=== PATIENT | male | born 1960 | race Caucasian/White ===

== ENCOUNTER 2019-09-29 15:27 | Outpatient (CLI) | payer BC, SELFPAY ==
[2019-09-29 15:57] LABS: Hematocrit 41.2 % (42.0-52.0); Mean Corpuscular Hemoglobin 30.6 pg (26-34); Mean Corpuscular Volume 90.2 fl (80-100); Mean Platelet Volume 9.4 fl (7.4-10.4); Platelet Count Result 242 k/mm3 (150-375); Red Blood Count 4.57 M/mm3 (4.6-6.20); Red Cell Distribution Width 12.2 % (11.5-14.5)
[2019-09-29 16:11] LABS: Alanine Aminotransferase 30 U/L (4-50); Albumin Level 4.2 g/dL (3.5-5.1); Alkaline Phosphatase 41 U/L (38-126); Aspartate Amino Transferase 24 U/L (17-59); Bilirubin,Total 0.3 mg/dL (0.2-1.3); Blood Urea Nitrogen 23 mg/dL (9-20); Calcium 9.3 mg/dL (8.4-10.2); Carbon Dioxide 24 mmol/L (22-30); Chloride 103 mmol/L (98-107); Cholesterol 119 mg/dL (0-200); Estimated Glomerular Filt Rate > 60; Glucose 128 mg/dL (75-110); HDL Direct 42 mg/dL; Sodium 141 mmol/L (137-145); Triglycerides 284 mg/dL (<150)
[2019-09-29 16:23] LABS: LDL Cholesterol Direct 51 mg/dL
[2019-09-29 16:54] LABS: Hemoglobin A1C 6.8 % (<5.7)
[2019-09-29 17:19] LABS: Prostate Specific Antigen 1.2 ng/mL (< OR = 4.0)
== END 2019-09-29 15:28 | disposition home or self-care (01) ==
LOC: ANHLAB 15:28
PROVIDERS: PCP Internal Medicine; Visit Provider Physician Assistant
DX: Z00.00 Encounter for general adult medical examination without abnormal findings (principal); E11.9 Type 2 diabetes mellitus without complications; Z12.5 Encounter for screening for malignant neoplasm of prostate
CPT/HCPCS: 36415; 80053; 80061; 83036; 84153; 84443; 85027

== ENCOUNTER 2020-05-31 08:28 | Outpatient (CLI) | payer BC, SELFPAY ==
[2020-05-31 09:06] LABS: Alanine Aminotransferase 36 U/L (4-50); Albumin Level 4.2 g/dL (3.5-5.1); Alkaline Phosphatase 39 U/L (38-126); Anion Gap 8 mmol/L (8-16); Aspartate Amino Transferase 22 U/L (17-59); Bilirubin,Total 0.6 mg/dL (0.2-1.3); Blood Urea Nitrogen 20 mg/dL (9-20); Calcium 9.4 mg/dL (8.4-10.2); Carbon Dioxide 30 mmol/L (22-30); Chloride 101 mmol/L (98-107); Cholesterol 185 mg/dL (0-200); Estimated Glomerular Filt Rate > 60; Glucose 211 mg/dL (75-110); HDL Direct 37 mg/dL; Potassium 4.2 mmol/L (3.4-5.0); Sodium 139 mmol/L (137-145); Triglycerides 194 mg/dL (<150)
[2020-05-31 09:10] LABS: Hemoglobin A1C 7.5 % (<5.7)
[2020-05-31 09:17] LABS: LDL Cholesterol Direct 114 mg/dL
[2020-05-31 09:22] LABS: Creatinine Urine 241.6 mg/dL
[2020-05-31 09:26] LABS: MALB Creatinine Ratio 13.8 mg/g (0-30); Microalbumin Urine Random 33.3 mg/L (0-16.7)
== END 2020-05-31 08:29 | disposition home or self-care (01) ==
PROVIDERS: PCP Internal Medicine; Visit Provider Physician Assistant
DX: E11.9 Type 2 diabetes mellitus without complications (principal)
CPT/HCPCS: 36415; 80053; 80061; 82043; 83036

== ENCOUNTER 2020-12-15 08:57 | Outpatient (CLI) | payer BC, SELFPAY ==
[2020-12-15 09:35] LABS: Hematocrit 42.4 % (42.0-52.0); Hemoglobin 14.4 g/dL (14.0-18.0); Mean Corpuscular Hemoglobin 29.9 pg (26-34); Mean Platelet Volume 8.8 fl (7.4-10.4); Platelet Count Result 235 k/mm3 (150-375); Red Blood Count 4.82 M/mm3 (4.6-6.20); Red Cell Distribution Width 12.5 % (11.5-14.5); White Blood Count 5.1 K/mm3 (4.5-10.0)
[2020-12-15 09:46] LABS: Alanine Aminotransferase 25 U/L (4-50); Albumin Level 4.3 g/dL (3.5-5.1); Alkaline Phosphatase 39 U/L (38-126); Anion Gap 7 mmol/L (8-16); Aspartate Amino Transferase 21 U/L (17-59); Bilirubin,Total 0.3 mg/dL (0.2-1.3); Blood Urea Nitrogen 19 mg/dL (9-20); Calcium 9.3 mg/dL (8.4-10.2); Carbon Dioxide 28 mmol/L (22-30); Chloride 104 mmol/L (98-107); Cholesterol 191 mg/dL (0-200); Estimated Glomerular Filt Rate > 60; Glucose 151 mg/dL (75-110); HDL Direct 49 mg/dL; Potassium 4.1 mmol/L (3.4-5.0); Sodium 139 mmol/L (137-145); Triglycerides 117 mg/dL (<150)
[2020-12-15 09:50] LABS: Hemoglobin A1C 7.2 % (<5.7)
[2020-12-15 09:59] LABS: LDL Cholesterol Direct 115 mg/dL
[2020-12-15 10:11] LABS: Creatinine Urine 209.7 mg/dL
[2020-12-15 10:15] LABS: MALB Creatinine Ratio 11.2 mg/g (0-30); Microalbumin Urine Random 23.5 mg/L (0-16.7)
[2020-12-15 10:17] LABS: Prostate Specific Antigen 2.9 ng/mL (< OR = 4.0)
[2020-12-15 10:52] LABS: Folic Acid 15.7 ng/mL (2.76->20)
== END 2020-12-15 08:58 | disposition home or self-care (01) ==
LOC: ANHLAB 09:00
PROVIDERS: PCP Physician Assistant; Visit Provider Physician Assistant
DX: E11.9 Type 2 diabetes mellitus without complications (principal); Z00.00 Encounter for general adult medical examination without abnormal findings; Z12.5 Encounter for screening for malignant neoplasm of prostate
CPT/HCPCS: 36415; 80053; 80061; 82043; 82607; 82746; 83036; 84153; 84443; 85027; G0103

== ENCOUNTER 2021-07-11 08:14 | Outpatient (CLI) | payer BC, SELFPAY ==
[2021-07-11 08:52] LABS: Hemoglobin A1C 7.3 % (<5.7)
[2021-07-11 08:59] LABS: Alanine Aminotransferase 28 U/L (4-50); Albumin Level 4.5 g/dL (3.5-5.1); Alkaline Phosphatase 42 U/L (38-126); Anion Gap 6 mmol/L (8-16); Aspartate Amino Transferase 21 U/L (17-59); Bilirubin,Total 0.4 mg/dL (0.2-1.3); Blood Urea Nitrogen 20 mg/dL (9-20); Calcium 9.8 mg/dL (8.4-10.2); Carbon Dioxide 27 mmol/L (22-30); Chloride 102 mmol/L (98-107); Cholesterol 194 mg/dL (0-200); Estimated Glomerular Filt Rate > 60; Glucose 157 mg/dL (65-110); HDL Direct 47 mg/dL; Potassium 4.1 mmol/L (3.4-5.0); Sodium 135 mmol/L (137-145); Triglycerides 152 mg/dL (<150)
[2021-07-11 09:10] LABS: LDL Cholesterol Direct 112 mg/dL
== END 2021-07-11 08:15 | disposition home or self-care (01) ==
LOC: ANHLAB 08:15
PROVIDERS: PCP Physician Assistant; Visit Provider Physician Assistant
DX: E11.9 Type 2 diabetes mellitus without complications (principal)
CPT/HCPCS: 36415; 80053; 80061; 83036

== ENCOUNTER 2022-01-13 07:56 | Outpatient (CLI) | payer BC, SELFPAY ==
[2022-01-13 09:00] LABS: Alanine Aminotransferase 28 U/L (6-50); Albumin Level 4.1 g/dL (3.5-5.1); Alkaline Phosphatase 40 U/L (38-126); Anion Gap 6 mmol/L (8-16); Aspartate Amino Transferase 20 U/L (17-59); Bilirubin,Total 0.5 mg/dL (0.2-1.3); Blood Urea Nitrogen 25 mg/dL (9-20); Calcium 8.8 mg/dL (8.4-10.2); Carbon Dioxide 28 mmol/L (22-30); Chloride 105 mmol/L (98-107); Cholesterol 122 mg/dL (0-200); Estimated Glomerular Filt Rate > 60; Glucose 168 mg/dL (65-110); HDL Direct 43 mg/dL; Potassium 3.9 mmol/L (3.4-5.0); Sodium 139 mmol/L (137-145); Triglycerides 104 mg/dL (<150)
[2022-01-13 09:11] LABS: LDL Cholesterol Direct 59 mg/dL
[2022-01-13 09:17] LABS: Hemoglobin A1C 8.3 % (<5.7)
[2022-01-13 10:29] LABS: Creatinine Urine 207.1 mg/dL
[2022-01-13 10:37] LABS: MALB Creatinine Ratio 14.1 mg/g (0-30); Microalbumin Urine Random 29.2 mg/L (0-16.7)
== END 2022-01-13 07:57 | disposition home or self-care (01) ==
LOC: ANHLAB 07:58
PROVIDERS: PCP Physician Assistant; Visit Provider Physician Assistant
DX: E11.9 Type 2 diabetes mellitus without complications (principal)
CPT/HCPCS: 36415; 80053; 80061; 82043; 83036

== ENCOUNTER 2022-05-06 08:07 | Outpatient (CLI) | payer BC, SELFPAY ==
[2022-05-06 09:02] LABS: Alanine Aminotransferase 29 U/L (6-50); Albumin Level 4.1 g/dL (3.5-5.1); Alkaline Phosphatase 37 U/L (38-126); Anion Gap 10 mmol/L (8-16); Aspartate Amino Transferase 22 U/L (17-59); Bilirubin,Total 0.4 mg/dL (0.2-1.3); Blood Urea Nitrogen 21 mg/dL (9-20); Calcium 9.2 mg/dL (8.4-10.2); Carbon Dioxide 24 mmol/L (22-30); Chloride 104 mmol/L (98-107); Estimated Glomerular Filt Rate > 60; Glucose 180 mg/dL (65-110); Sodium 138 mmol/L (137-145)
[2022-05-06 09:29] LABS: Prostate Specific Antigen 2.6 ng/mL (< OR = 4.0)
[2022-05-06 10:05] LABS: Folic Acid 18.2 ng/mL (2.76->20)
[2022-05-06 10:23] LABS: Hemoglobin A1C 8.1 % (<5.7)
== END 2022-05-06 08:08 | disposition home or self-care (01) ==
LOC: ANHLAB 08:08
PROVIDERS: PCP Physician Assistant; Visit Provider Physician Assistant
DX: Z00.00 Encounter for general adult medical examination without abnormal findings (principal); E11.9 Type 2 diabetes mellitus without complications; Z12.5 Encounter for screening for malignant neoplasm of prostate
CPT/HCPCS: 36415; 80053; 82607; 82746; 83036; 84153; 84443; G0103

== ENCOUNTER 2022-10-20 08:18 | Outpatient (CLI) | payer BC, SELFPAY ==
[2022-10-20 09:33] LABS: Alanine Aminotransferase 30 U/L (6-50); Albumin Level 4.7 g/dL (3.5-5.1); Alkaline Phosphatase 38 U/L (38-126); Anion Gap 6 mmol/L (8-16); Aspartate Amino Transferase 28 U/L (17-59); Bilirubin,Total 0.7 mg/dL (0.2-1.3); Blood Urea Nitrogen 24 mg/dL (9-20); Carbon Dioxide 27 mmol/L (22-30); Chloride 106 mmol/L (98-107); Estimated Glomerular Filt Rate > 60; Glucose 160 mg/dL (65-110); Hemoglobin A1C 7.8 % (<5.7); Sodium 139 mmol/L (137-145)
== END 2022-10-20 08:19 | disposition home or self-care (01) ==
PROVIDERS: PCP Physician Assistant; Visit Provider Physician Assistant
DX: E11.9 Type 2 diabetes mellitus without complications (principal)
CPT/HCPCS: 36415; 80053; 83036

== ENCOUNTER 2023-03-17 08:16 | Outpatient (CLI) | payer BC, SELFPAY ==
[2023-03-17 08:44] LABS: Alanine Aminotransferase 28 U/L (6-50); Albumin Level 4.1 g/dL (3.5-5.1); Alkaline Phosphatase 35 U/L (38-126); Anion Gap 6 mmol/L (8-16); Aspartate Amino Transferase 25 U/L (17-59); Bilirubin,Total 0.6 mg/dL (0.2-1.3); Blood Urea Nitrogen 27 mg/dL (9-20); Calcium 8.9 mg/dL (8.4-10.2); Carbon Dioxide 25 mmol/L (22-30); Chloride 105 mmol/L (98-107); Estimated Glomerular Filt Rate > 60; Glucose 142 mg/dL (65-110); Potassium 4.1 mmol/L (3.4-5.0); Sodium 136 mmol/L (137-145)
[2023-03-17 09:14] LABS: Hemoglobin A1C 7.8 % (<5.7)
== END 2023-03-17 08:17 | disposition home or self-care (01) ==
PROVIDERS: PCP Physician Assistant; Visit Provider Physician Assistant
DX: E11.9 Type 2 diabetes mellitus without complications (principal)
CPT/HCPCS: 36415; 80053; 83036

== ENCOUNTER 2023-07-28 08:37 | Outpatient (CLI) | payer BC, SELFPAY ==
[2023-07-28 09:11] LABS: Basophils Percent Auto 0.3 % (0.2-1.2); Eosinophils Absolute Auto 0.3 K/mm3 (0-0.3); Eosinophils Percent Auto 4.6 % (0-4.4); Hematocrit 43.6 % (42.0-52.0); Hemoglobin 14.9 g/dL (14.0-18.0); Immature Granulocyte Absolute 0.04 K/mm3 (0.00-0.031); Immature Granulocyte Percent A 0.7 % (0-0.5); Lymphocytes Absolute Auto 1.71 K/mm3 (0.9-3.2); Lymphocytes Percent Auto 29.3 % (18.3-44.2); Mean Corpuscular HGB Conc 34.2 g/dl (32-36); Mean Corpuscular Hemoglobin 30.7 pg (26-34); Mean Corpuscular Volume 89.7 fl (80-100); Monocytes Absolute Auto 0.6 K/mm3 (0.1-0.6); Monocytes Percent Auto 10.1 % (2.6-8.5); Neutrophils Absolute Auto 3.2 K/mm3 (1.3-6.7); Platelet Count Result 215 k/mm3 (150-375); Red Blood Count 4.86 M/mm3 (4.6-6.20); Red Cell Distribution Width 11.9 % (11.5-14.5); White Blood Count 5.8 K/mm3 (4.5-10.0)
[2023-07-28 10:36] LABS: Creatinine Urine 211.2 mg/dL
[2023-07-28 10:41] LABS: MALB Creatinine Ratio 8.9 mg/g (0-30); Microalbumin Urine Random 18.8 mg/L (0-16.7)
[2023-07-28 11:12] LABS: Alanine Aminotransferase 28 U/L (6-50); Albumin Level 4.1 g/dL (3.5-5.1); Alkaline Phosphatase 39 U/L (38-126); Anion Gap 9 mmol/L (8-16); Aspartate Amino Transferase 22 U/L (17-59); Bilirubin,Total 0.5 mg/dL (0.2-1.3); Blood Urea Nitrogen 21 mg/dL (9-20); Calcium 9.5 mg/dL (8.4-10.2); Carbon Dioxide 24 mmol/L (22-30); Chloride 104 mmol/L (98-107); Cholesterol 108 mg/dL (0-200); Estimated Glomerular Filt Rate > 60; Glucose 154 mg/dL (65-110); HDL Direct 42 mg/dL; Potassium 4.4 mmol/L (3.4-5.0); Sodium 137 mmol/L (137-145); Triglycerides 90 mg/dL (<150)
[2023-07-28 11:24] LABS: LDL Cholesterol Direct 51 mg/dL
[2023-07-28 11:43] LABS: Prostate Specific Antigen 3.1 ng/mL (< OR = 4.0)
== END 2023-07-28 08:38 | disposition home or self-care (01) ==
LOC: ANHLAB 08:38
PROVIDERS: PCP Internal Medicine; Visit Provider Physician Assistant
DX: R53.83 Other fatigue (principal); E11.9 Type 2 diabetes mellitus without complications; Z12.5 Encounter for screening for malignant neoplasm of prostate
CPT/HCPCS: 36415; 80053; 80061; 82043; 83036; 84153; 84443; 85025; G0103

== ENCOUNTER 2024-04-19 08:38 | Outpatient (CLI) | payer BC, SELFPAY ==
[2024-04-19 10:11] LABS: Alanine Aminotransferase 19 U/L (6-50); Alkaline Phosphatase 40 U/L (38-126); Aspartate Amino Transferase 18 U/L (17-59); Bilirubin,Total 0.6 mg/dL (0.2-1.3); Blood Urea Nitrogen 16 mg/dL (9-20); Calcium 9.1 mg/dL (8.4-10.2); Carbon Dioxide 26 mmol/L (22-30); Chloride 95 mmol/L (98-107); Cholesterol 117 mg/dL (0-200); Estimated Glomerular Filt Rate > 60; Glucose 180 mg/dL (65-110); HDL Direct 43 mg/dL; Potassium 3.9 mmol/L (3.4-5.0); Triglycerides 122 mg/dL (<150)
[2024-04-19 10:17] LABS: Anion Gap 9 mmol/L (4-12); Sodium 130 mmol/L (137-145)
[2024-04-19 10:19] LABS: LDL Cholesterol Direct 53 mg/dL
[2024-04-19 10:30] LABS: Hemoglobin A1C 9.5 % (<5.7)
== END 2024-04-19 08:39 | disposition home or self-care (01) ==
LOC: ANHLAB 08:39
PROVIDERS: PCP Internal Medicine; Visit Provider Internal Medicine
DX: E78.5 Hyperlipidemia, unspecified (principal); E11.9 Type 2 diabetes mellitus without complications; Z12.5 Encounter for screening for malignant neoplasm of prostate
CPT/HCPCS: 36415; 80053; 80061; 83036; 84153; G0103

== ENCOUNTER 2024-09-26 05:13 | Day surgery (SDC) | payer BC, SELFPAY ==
[2024-09-12 15:42] VITALS: BMI 30.4
--- OUTSIDE RECORDS SUMMARY | 2024-09-26 05:16 | XMS_ITS | Clinical Summary ---
Author Organization [facility] Address [address] [place] [address] Care Team Providers Care Box Printing Machine Operator Name Role Phone Ga Barreto Primary Care Provider Source Comments [facility],non-owned Affiliates and Associated Physician Practices is amultiple site organization consisting of ambulatory clinics and hospital sitesin [place], [place], [place] and [place]. This disclosure is being madepursuant to the Care Everywhere program and may not contain all informatio navailable regarding this patient. Last updated 18.[facility] Allergies No known active allergies Immunizations Name Administration Dates Next Due INFLUENZA VACCINE, QUADR. (F LUZONE; FLULAVAL; FLUARIX; AFLURIA QUADRIVALENT; 6MO+), 0.5 ML (IIV4) 05/20/2019 Social History Tobacco Use Types Packs/Day Years Used Date Smoking Tobacco: Never Assessed Sex and Gender Information Value Date Recorded Sex Assigned at Not on file Gender Identity Not on file Sexual Orientation Not on file Plan of Treatment Health Maintenance Due Date Last Done Comments COLOGUARD (AGES 45-75) - COL ON CA SCREENING 1961 COLON MONITORING 1961 COLONOSCOPY - COLON CA SCREENING 1961 CT COLONOGRAPHY - COLON CA SCREENING 1961 Colorectal Cancer Screening 1961 FIT - COLON CA SCREENING 1961 FLEX SIG - COLON CA SCREENING 1961 LIPID TESTING 1961 HIV SCREENING 02/17/1976 HEPATITIS C SCREENING 02/12/1979 DTAP/TDAP/TD VACCINES (1 - Tdap) 02/17/1980 PNEUMOCOCCAL VACCINE 50+ (1 of 1 - PCV) 2011 ZOSTER VACCINE (1 of 2) 2011 COVID-19 VACCINE (1 - 2023-2 5 season) 2024 INFLUENZA VACCINE (#1) 2024 05/20/2019 DEPRESSION SCREENING 08/06/2024 Respiratory Syncytial Virus (RSV) Vaccine Pt: or over 60 yrs (1 - 1-dose 75+ series) 02/17/2036 HEPATITIS B VACCINE Aged Out No longe r eligible based on patient's age to complete this topic HIB VACCINE Aged Out No longer eligi ble based on patient's age to complete this topic HPV VACCINE Aged Out No longer eligi ble based on patient's age to complete this topic MENINGOCOCCAL (Group B) VACCINE Aged Out No longer eligible based on patient's age to complete this topic MENINGOCOCCAL VACCINE Aged Out No zoey mendel eligible based on patient's age to complete this topic PNEUMOCOCCAL VACCINE Aged Out No long er eligible based on patient's age to complete this topic Care Teams Box Printing Machine Operator Relationship Specialty Start Date End Date Ga Barreto DO [address] [facility] [address] [place] [address] PCP - General 11/19/18
--- OUTSIDE RECORDS SUMMARY | 2024-09-26 05:16 | XMS_ITS | Referral Summary ---
Author Organization [facility] Address [address] [place] [address] Care Team Providers Care Sales Team Leader Name Role Phone Ga Barreto Primary Care Provider [phone] Source Comments [facility],non-owned Affiliates and Associated Physician Practices is amultiple site organization consisting of ambulatory clinics and hospital sitesin [place], [place], [place] and [place]. This disclosure is being madepursuant to the Care Everywhere program and may not contain all information available regarding this patient. Last updated 18.[facility] [employer] Allergies No known active allergies Immunizations Name [...] Orientation Not on file Plan of Treatment Not on file Care Teams Sales Team Leader Relationship Specialty Start Date End Date Ga Barreto DO [address] [facility] [address] [place], [place] [id number] PCP - General 11/19/18
--- OUTSIDE RECORDS SUMMARY | 2024-09-26 05:16 | XMS_ITS | Continuity of Care Document ---
Author Organization [facility] Address [address] [place] [address] [address] [place] [address] Phone Care Team Providers Care Dope Firer Name Role Phone Oly Morton Unavailable Unavailable Advance Directives Directive Yes / No Effective Date File Name No Information Encounters Encounter Description Practice Location Reason(s) For Visit Diagnoses Date Provider Providers Copied on Encounter [facility], [address] [place] [address] [address], [place], [place], [id number], [place] tel:[phone] [facility] No Information Oct-1 5-200 1 Seelne Aldridge. [address] [facility] [address] , [address], [place], [address], [place]. tel:[phone] Family History Family Member Type Diagnosis Age At Onset No Information Payers Payer name Insurance type Covered alliance party ID Authoriza tirajani(s) [employer] SOI CI [id number] Social History Type Description Quantity Date Captured [...]
--- OUTSIDE RECORDS SUMMARY | 2024-09-26 05:16 | XMS_ITS | Patient Health Summary ---
Author Organization [facility] Address [address] [place] [address] Care Team Providers Care Doweling Machine Operator Name Role Phone Ga Barreto DO Primary Care Provider Note from [facility],non-owned Affiliates and Associated Physician Practices is amultiple site organization consisting of ambulatory clinics and hospital sitesin [place], [place], [place] and [place]. This disclosure is being madepursuant to the Care Everywhere program and may not contain all information available regarding this patient. Last updated 18.[facility] Allergies No known active allergies Immunizations * INFLUENZA VACCINE, QUADR. (FLUZONE; FLULAVAL; FLUARIX; AFLURIA QUADRIVALENT; 6MO+), 0.5 ML (IIV4)(Given 05/20/2019) Social History Tobacco Use Types Packs/Day Years Used Date Smoking Tobacco: Never Assessed Sex and Gender Information Value Date Recorded Sex Assigned at Not on file Gender Identity Not on file Sexual Orientation Not on file Care Teams Doweling Machine Operator Relationship Specialty Start Date End Date Ga Barreto DO [address] [facility] [address] [facility] [address] [place] [address] PCP - General 11/19/18
[2024-09-26 09:15] VITALS: BP 126/79; PULSE 71; RESP 20; TEMP 36.4; O2SAT 99; BMI 28.6
[2024-09-26] MEDS: LACTATED RINGERS 1,000 ML 150 ML IV CONT (09:28)
[2024-09-26 09:30] LABS: Glucose Point of Care 127 mg/dl (65-105)
--- NOTE | 2024-09-26 09:52 | PM.HPGS ---
History of Present Illness History of Present Illness Consent: Risks, benefits, and alternatives have been discussed and questions answered. Patient agrees to proceed with procedure. Chief complaint: personal hx colon polyps Narrative: Darrel Olsen is a 64 year old male with colon polyp in 2019 Review of Systems Review of Systems: All systems reviewed & are unremarkable except as noted in HPI and below PMFSH Past Medical History Medical History (Updated 09/26/24 @ 09:55 by Abdelrahman Barr MD) Colon polyp Family History Family History Father Cerebrovascular accident Grandparent Family history of malignant neoplasm Social History Social History Smoking status: Never smoker Second hand tobacco smoke exposure: No Alcohol intake: never Substance use: never Substance use type: does not use Lack of Transportation: No Lack of Food: Never True Current Housing: I Have Housing Concerned About Future Housing: No Difficulty Paying Gas/Electric Bills: No Difficulty Paying for Meds: No Currently Unemployed: No Education: High School Diploma/GED Difficulty w/ Childcare or Family Care: No Living arrangements: with family Spiritual care concerns: No Meds Home Medications and Allergies Home Medications ?Medication ?Instructions ?Recorded ?Confirmed ?Type meloxicam 15 mg tablet 15 mg PO DAILY #90 tabs 01/26/23 09/12/24 Rx blood sugar diagnostic (FreeStyle #100 ea 03/19/23 04/15/24 Rx Lite Strips) tamsulosin 0.4 mg capsule 0.4 mg PO DAILY #90 caps 12/31/23 09/26/24 Rx lisinopril 10 mg tablet 10 mg PO DAILY #90 tabs 06/30/24 09/26/24 Rx rosuvastatin 5 mg tablet 5 mg PO DAILY #90 tabs 06/30/24 09/26/24 Rx finasteride 5 mg tablet 5 mg PO DAILY #90 tabs 07/14/24 09/26/24 Rx tirzepatide 10 mg/0.5 mL 10 mg (0.5 mL) subcut WEEKLY #2 mL 08/12/24 09/26/24 Rx subcutaneous pen injector (Gabriela) metformin 500 mg tablet 500 mg PO BID #180 tabs 09/25/24 09/26/24 Rx Allergies Allergy/AdvReac Type Severity Reaction Status Date / Time No Known Allergies Allergy Verified 09/26/24 09:12 Vital Signs Vital Signs - 24 hr 09/26/24 09:15 Temperature 97.6 F Pulse Rate 71 Respiratory Rate 20 Blood Pressure 126/79 Pulse Oximetry 99 Oxygen Delivery Room Air Exam Const: General: comfortable and no acute distress HENMT: Face/Nose/Sinus: Normal nares present Eyes: General: appearance normal, both eyes and all related structures Neck: Neck: no JVD Resp: Auscultation: clear to auscultation bilaterally Cardio: Rate: regular rate Rhythm: regular rhythm GI: Inspection: non-distended GI Palp: Yes Soft to palpation Skin: General skin exam: normal color Neuro: General: gait normal Speech: normal speech Extrem: General: normal to inspection Psych: Mental Status: mental status grossly normal Assessment and Plan Assessment and plan (1) Colon polyp: Code(s): K63.5 - Polyp of colon Status: Acute Assessment and Plan: colonoscopy
--- NOTE | 2024-09-26 09:58 | WPDANESEPPF ---
Anes - Initial Pre Proc Eval Procedure: Operation Date: 09/26/24 10:30 Proposed Procedures p Screening Colonoscopy - Abdelrahman Barr MD Date/Time: 09/26/24 09:58 Surgeon: Abdelrahman Barr MD Pre Op Diagnosis: personal hx colon polyps Patient Data Age: 64 Gender: M Height: 1.83 m Weight: 95.9 kg Last Vital Signs Temp 36.4 C 09/26/24 09:15 Pulse 71 09/26/24 09:15 Resp 20 09/26/24 09:15 BP 126/79 09/26/24 09:15 Pulse Ox 99 09/26/24 09:15 O2 Del Method Room Air 09/26/24 09:15 Allergies Allergy/AdvReac Type Severity Reaction Status Date / Time No Known Allergies Allergy Verified 09/26/24 09:12 Home Medications ?Medication ?Instructions ?Recorded ?Confirmed ?Type meloxicam 15 mg tablet 15 mg PO DAILY #90 tabs 01/26/23 09/12/24 Rx blood sugar diagnostic (FreeStyle #100 ea 03/19/23 04/15/24 Rx Lite Strips) tamsulosin 0.4 mg capsule 0.4 mg PO DAILY #90 caps 12/31/23 09/26/24 Rx lisinopril 10 mg tablet 10 mg PO DAILY #90 tabs 06/30/24 09/26/24 Rx rosuvastatin 5 mg tablet 5 mg PO DAILY #90 tabs 06/30/24 09/26/24 Rx finasteride 5 mg tablet 5 mg PO DAILY #90 tabs 07/14/24 09/26/24 Rx tirzepatide 10 mg/0.5 mL 10 mg (0.5 mL) subcut WEEKLY #2 mL 08/12/24 09/26/24 Rx subcutaneous pen injector (Mounjaro) metformin 500 mg tablet 500 mg PO BID #180 tabs 09/25/24 09/26/24 Rx Laboratory Tests 09/26/24 09:26 POC Capillary Glucose 127 H mg/dl (65-105) Patient hx anesthesia problems: none Family hx anesthesia problems: none Results Review: All pre-operative results and documents have been reviewed as part of the pre-operative evaluation. [facility] Past Medical History Medical History Colon polyp Family History Family History Father Cerebrovascular accident Grandparent Family history of malignant neoplasm Social History Social History Smoking status: Never smoker Second hand tobacco smoke exposure: No Alcohol intake: never Substance use: never Substance use type: does not use Lack of Transportation: No Lack of Food: Never True Current Housing: I Have Housing Concerned About Future Housing: No Difficulty Paying Gas/Electric Bills: No Difficulty Paying for Meds: No Currently Unemployed: No Education: High School Diploma/GED Difficulty w/ Childcare or Family Care: No Living arrangements: with family Spiritual care concerns: No Past History Past medical history: HTN, DM II Anes - Eval Final PreProcedure Day of Procedure 09/26/24 09:58 Patient weight: obese Heart: regular rate and rhythm Lungs: normal air movement Airway: Mallampati scale class II Neurological: alert and oriented ASA classification: III Emergent: no Anesthetic plan: proceed Anesthesia type and monitoring: general GIVS and standard monitoring Results Review: All pre-operative results and documents have been reviewed as part of the pre-operative evaluation. Informed Consent: The patient's anesthetic plan and its attendant risks and benefits were discussed with the patient/family/POA. Questions were solicited and answers provided to the satisfaction of the patient/family/POA.
[2024-09-26 10:17] VITALS: BP 112/74; PULSE 66; RESP 18; O2SAT 98
[2024-09-26 10:27] VITALS: BP 107/68; PULSE 64; RESP 15; O2SAT 98
[2024-09-26 10:37] VITALS: BP 116/79; PULSE 63; RESP 18; O2SAT 100
== END 2024-09-26 10:54 | disposition home or self-care (01) ==
PROVIDERS: Visit Provider Internal Medicine Gastroenterology
PROC: 0DJD8ZZ Inspection of Lower Intestinal Tract, Via Natural or Artificial Opening Endoscopic (ICD-10-PCS; CPT 45378; principal; 2024-09-26 10:30)
DX: Z12.11 Encounter for screening for malignant neoplasm of colon (principal); D12.3 Benign neoplasm of transverse colon; K64.8 Other hemorrhoids; E66.9 Obesity, unspecified; Z68.28 Body mass index [BMI] 28.0-28.9, adult; Z79.84 Long term (current) use of oral hypoglycemic drugs; Z79.85 Long-term (current) use of injectable non-insulin antidiabetic drugs; Z80.9 Family history of malignant neoplasm, unspecified; Z82.49 Family history of ischemic heart disease and other diseases of the circulatory system
CPT/HCPCS: 45385; 82948; 88305; J2003; J2704; J7120

== ENCOUNTER 2024-10-18 07:57 | Outpatient (CLI) | payer BC, SELFPAY ==
--- OUTSIDE RECORDS SUMMARY | 2024-10-18 08:00 | XMS_ITS | Patient Health Summary ---
Author Organization [facility] Address [address] [facility] [place] [address] Care Team Providers Care Cardiovascular Disease Specialist Name Role Phone Ga Barreto DO Primary Care Provider [phone] Note from [facility],non-owned Affiliates and Associated Physician Practices is amultiple site organization consisting of ambulatory clinics and hospital sitesin [place], [place], [place] and [place]. This disclosure is being madepursuant to the Care Everywhere program and may not contain all information available regarding this patient. Last updated 18.[facility] Allergies No known active allergies Immunizations * INFLUENZA VACCINE, QUADR. (FLUZONE; FLULAVAL; FLUARIX; AFLURIA QUADRIVALENT; 6MO+), 0.5 ML (IIV4)(Given 05/20/2019) Social History Tobacco Use Types Packs/Day Years Used Date Smoking Tobacco: Never Assessed Sex and Gender Information Value Date Recorded Sex Assigned at Not on file Gender Identity Not on file Sexual Orientation Not on file Care Teams Cardiovascular Disease Specialist Relationship Specialty Start Date End Date Ga Barreto DO [address] [facility] [facility] [address] [place] [address] PCP - General 11/19/18
--- OUTSIDE RECORDS SUMMARY | 2024-10-18 08:00 | XMS_ITS | Continuity of Care Document ---
Author Organization [facility] Address [address] [place] [address] [address] [place] [address] Phone Care Team Providers Care Lay Out Former Name Role Phone Oly Morton Unavailable Unavailable Advance Directives Directive Yes / No Effective Date File Name No Information Encounters Encounter Description Practice Location Reason(s) For Visit Diagnoses Date Provider Providers Copied on Encounter [facility], [address] [place] [address] [address], [place], [place], [address], [place] tel:[phone] [facility] No Information Oct-1 5-200 1 Selene Aldridge. [address] [facility] [address] , [address], [place], [address], [place]. tel:[phone] Family History Family Member Type Diagnosis Age At Onset No Information Payers Payer name Insurance type Covered libertarian ID Authoriza tirajani(s) [employer] SOI CI [id number] Social History Type Description Quantity Date Captured [...]
--- OUTSIDE RECORDS SUMMARY | 2024-10-18 08:00 | XMS_ITS | Referral Summary ---
Author Organization [facility] Address [address] [facility] [place] [address] Care Team Providers Care Catalyst Concentration Operator Name Role Phone Ga Barreto Primary Care Provider [phone] Source Comments [facility],non-owned Affiliates and Associated Physician Practices is amultiple site organization consisting of ambulatory clinics and hospital sitesin [place], [place], [place] and [place]. This disclosure is being madepursuant to the Care Everywhere program and may not contain all information available regarding this patient. Last updated 18.[facility] Allergies No known active allergies Immunizations Name [...] of Treatment Not on file Care Teams Catalyst Concentration Operator Relationship Specialty Start Date End Date Ga Barreto DO [address] [facility] [address] [place], [place] [id number] PCP - General 11/19/18
--- OUTSIDE RECORDS SUMMARY | 2024-10-18 08:00 | XMS_ITS | Clinical Summary ---
Author Organization [email or web address] Address [address] [place] [place] [address] Care Team Providers Care Chairman President And Chief Executive Officer Name Role Phone Ga Barreto Primary Care Provider Source Comments [email or web address],non-owned Affiliates and Associated Physician Practices is amultiple site organization consisting of ambulatory clinics and hospital sitesin [place], [place], [place] and [place]. This disclosure is being madepursuant to the Care Everywhere program and may not contain all information available regarding this patient. Last updated 18.[email or web address] Allergies No known active allergies Immunizations Name [...] to complete this topic MENINGOCOCCAL (Group B) VACC INE SHARED DECISION-MAKING Aged Out No longer eligibl e based on patient's age to complete this topic MENINGOCOCCAL GROUPS A/C/Y/W VACCINE Aged Out No longer eligible b ased on patient's age to complete this topic Care Teams Chairman President And Chief Executive Officer Relationship Specialty Start Date End Date Ga Barreto DO [address] [facility] [address] [place] [address] PCP - General 11/19/18
[2024-10-18 08:59] LABS: Alanine Aminotransferase 21 U/L (6-50); Albumin Level 4.1 g/dL (3.5-5.1); Alkaline Phosphatase 37 U/L (38-126); Anion Gap 10 mmol/L (4-12); Aspartate Amino Transferase 20 U/L (17-59); Bilirubin,Total 0.6 mg/dL (0.2-1.3); Blood Urea Nitrogen 23 mg/dL (9-20); Calcium 9.2 mg/dL (8.4-10.2); Carbon Dioxide 23 mmol/L (22-30); Chloride 106 mmol/L (98-107); Cholesterol 96 mg/dL (0-200); Estimated Glomerular Filt Rate > 60; Glucose 124 mg/dL (65-110); HDL Direct 44 mg/dL; Potassium 3.9 mmol/L (3.4-5.0); Sodium 139 mmol/L (137-145); Triglycerides 77 mg/dL (<150)
[2024-10-18 09:00] LABS: Hemoglobin A1C 6.4 % (<5.7)
[2024-10-18 09:11] LABS: LDL Cholesterol Direct 31 mg/dL
[2024-10-18 11:13] LABS: Creatinine Urine 278.2 mg/dL
[2024-10-18 11:17] LABS: MALB Creatinine Ratio 6.6 mg/g (0-30); Microalbumin Urine Random 18.5 mg/L (0-16.7)
== END 2024-10-18 07:58 | disposition home or self-care (01) ==
PROVIDERS: PCP Internal Medicine; Visit Provider Internal Medicine
DX: E78.5 Hyperlipidemia, unspecified (principal); E11.9 Type 2 diabetes mellitus without complications; R53.83 Other fatigue
CPT/HCPCS: 36415; 80053; 80061; 82043; 83036

== ENCOUNTER 2025-02-28 16:46 | Emergency (ER) | payer BC, SELFPAY ==
[2025-02-28] VITALS (12 sets, daily range): BP systolic 170–188; BP diastolic 73–84; PULSE 72–80; RESP 18; TEMP 36.4; O2SAT 95–99
--- NOTE | ~2025-02-28 | CT_ITS ---
EXAMINATION: CT abdomen pelvis wo con DATE: 02/28/2025 18:58 INDICATION: hematuria TECHNIQUE: Computed tomography (CT) of the abdomen and pelvis was performed without intravenous contr ast. Automated exposure control and iterative reconstruction technique were employed. The dose-length product was 325.32 mGy-cm. COMPARISON: None. FINDINGS: Lower thorax: Coronary artery calcifications Liver: Normal. Biliary/Gallbladder: Gallbladder is normal in size. No stones. Mild surrounding inflammatory change/f luid. No bile duct dilation. Pancreas: No mass or duct dilation. Spleen: Normal. Adrenals:No mass. Kidneys: No suspicious mass, obstructing stone, or hydronephrosis. GI tract: Small hiatal hernia. No small or large bowel dilation. Appendix not visualized. Mesentery/Peritoneum: No ascites, mass, or free air. Retroperitoneum: No mass. Atherosclerotic calcifications of intra-abdominal arterial vessels. Pelvis: Mild prostatomegaly. Partially distended urinary bladder with mild wall thickening. Soft Tissues: Small uncomplicated fat-containing umbilical hernia. Right rectus abdominous atrophy. Bones: No acute osseous finding. IMPRESSION: Mild pericholecystic inflammatory change/fluid, correlate with biliary labs and symptoms of right upp er quadrant pain. Urinary bladder wall thickening, may be secondary to cystitis, incomplete distention, or chronic outl et obstruction from prostatomegaly Reviewed, dictated and finalized at location K. IMPRESSION: Mild pericholecystic inflammatory change/fluid, correlate with biliary labs and symptoms of right upper quadrant pain. Urinary bladder wall thickening, may be secondary to cystitis, incomplete diste ntion, or chronic outlet obstruction from prostatomegaly
--- OUTSIDE RECORDS SUMMARY | 2025-02-28 16:49 | XMS_ITS | Clinical Summary ---
Author Organization [facility] [employer] Address [address] [place] [address] Care Team Providers Care Crown Ceramist Name Role Phone Ga Barreto Primary Care Provider [phone] Source Comments [facility] [employer],non-owned Affiliates and Associated Physician Practices is amultiple site organization consisting of ambulatory clinics and hospital sitesin [place], [place], [place] and [place]. This disclosure is being madepursuant to the Care Everywhere program and may not contain all information available regarding this patient. Last updated 18.[facility] [employer] [facility] Allergies No known active allergies Immunizations Immunization Administration Dates Next Due INFLUENZA VACCINE, QUADR. (F LUZONE; FLULAVAL; FLUARIX; AFLURIA QUADRIVALENT; 6MO+), 0.5 ML (IIV4) 05/20/2019 Social History Tobacco Use Types Packs/Day Years Used Date Smoking Tobacco: Never Assessed Sex and Gender Information Value Date Recorded Sex Assigned at Not on file Legal Sex Male 4:11 AM CDT Gender Identity Not on file Sexual Orientation [...] VACCINE (1 - 2023-2 5 season) 2024 DEPRESSION SCREENING 08/06/2024 INFLUENZA VACCINE (#1) 2025 05/20/2019 Respiratory Syncytial Virus (RSV) Vaccine Pt: or [...] on patient's age to complete this topic Insurance ANTHEM ANTHEM BCBS/[facility] SELF PAY NO INSURANCE Member Subscriber Plan / Payer (Ef fective for All Dates) Name:Oneil Lovelace Member ID:Not on file Relation to Subscriber:Not on file Name:ONEIL LOVELACE Subscriber ID:Not on file (Home) Address: [address] [place] [id number] Payer ID:Not on file Group ID:Not on file Type:Self Pay Address: [facility] Care Teams Crown Ceramist Relationship Specialty Start Date End Date Ga Barreto DO [address] [facility] [address] [place] [address] PCP - General 11/19/18
--- OUTSIDE RECORDS SUMMARY | 2025-02-28 16:49 | XMS_ITS | Continuity of Care Document ---
Author Organization [facility] Address [address] [place] [address] [address] [place] [address] Phone Care Team Providers Care Electric Utility Lineworker Name Role Phone Oly Morton Unavailable Unavailable Advance Directives Directive Yes / No Effective Date File Name No Information Encounters Encounter Description Practice Location Reason(s) For Visit Diagnoses Date Provider Providers Copied on Encounter [facility], [address] [place] [address] [address], [place], [place], [address], [place] tel:[phone] [facility] No Information Oct-1 5-200 1 Selene Aldridge. [address] [facility] [place] , [address], [place], [address], [place]. tel:[phone] Family History Family Member Type Diagnosis Age At Onset No Information Payers Payer name Insurance type Covered constitution party ID Authoriza tirajani(s) [employer] SOI CI [id number] Social History Type Description Quantity Date Captured [...]
--- NOTE | 2025-02-28 17:43 | WPDEDEXPGENP ---
HPI - General Ped General Chief complaint: Urogenital-Male Stated complaint: hematuria Time Seen by Provider: 02/28/25 17:27 Source: patient, RN notes reviewed and old records reviewed Mode of arrival: ambulatory Limitations: no limitations History of Present Illness HPI narrative: This is a 65 year old male who presents for evaluation of dark urine. Patient states that yesterday he thought he was drinking gatorade but he thinks it was weed killer. He states that he found full gatorade bottle at work and it tasted light oil so he immediately poured it out. He states he feels fine but he noticed that his urine was tea color today so he came to ER. He d Related Data Allergies Allergy/AdvReac Type Severity Reaction Status Date / Time No Known Allergies Allergy Verified 02/28/25 16:56 [facility] Past Medical History Medical History Type 2 diabetes mellitus without complications Skin cyst Sciatica, unspecified side Pure hyperglyceridemia Low back pain Hyperlipidemia, unspecified General medical examination Cough Colon polyp Family History Family History (Updated 10/13/24 @ 15:18 by PARVIZ Gonzalez) Father Cerebrovascular accident Grandparent Family history of malignant neoplasm Mother Sibling No problems noted. Social History Social History (Updated 10/13/24 @ 15:19 by PARVIZ Gonzalez) Smoking status: Never smoker Second hand tobacco smoke exposure: Yes Alcohol intake: current Substance use: never Substance use type: does not use Do You Feel Safe in your Home?: Yes Lack of Transportation: No Lack of Food: Never True Current Housing: I Have Housing Concerned About Future Housing: No Difficulty Paying Gas/Electric Bills: No Difficulty Paying for Meds: No Currently Unemployed: No Education: High School Diploma/GED Difficulty w/ Childcare or Family Care: No Living arrangements: with family Occupation/Education: occupation Additional occupation/education comments: [employer] Gender identity (if verbalized by the patient): Male Spiritual care concerns: No Course Vital Signs Vital signs: Vital Signs Temperature 97.5 F L 02/28/25 16:54 Pulse Rate 72 02/28/25 16:54 Respiratory Rate 18 02/28/25 16:54 Blood Pressure 175/78 H 02/28/25 16:54 Pulse Oximetry 96 02/28/25 16:54 Oxygen Delivery Room Air 02/28/25 16:54 Temperature 97.5 F L 02/28/25 16:54 Pulse Rate 72 02/28/25 16:54 Respiratory Rate 18 02/28/25 16:54 Blood Pressure 175/78 H 02/28/25 16:54 Pulse Oximetry 96 02/28/25 16:54 Oxygen Delivery Room Air 02/28/25 16:54 Medical Decision Making Vital Signs Vital Signs: Vital Signs Temperature 97.5 F L 02/28/25 16:54 Pulse Rate 72 02/28/25 16:54 Respiratory Rate 18 02/28/25 16:54 Blood Pressure 175/78 H 02/28/25 16:54 Pulse Oximetry 96 02/28/25 16:54 Oxygen Delivery Room Air 02/28/25 16:54 Temperature 97.5 F L 02/28/25 16:54 Pulse Rate 72 02/28/25 16:54 Respiratory Rate 18 02/28/25 16:54 Blood Pressure 175/78 H 02/28/25 16:54 Pulse Oximetry 96 02/28/25 16:54 Oxygen Delivery Room Air 02/28/25 16:54 Lab Data 02/28/25 17:50 02/28/25 17:50 Labs: Lab Results 02/28/25 02/28/25 02/28/25 Range/Units 17:50 17:51 17:52 WBC 8.5 (4.5-10.0) K/mm3 RBC 4.52 L (4.6-6.20) M/mm3 Hgb 13.9 L (14.0-18.0) g/dL Hct 41.1 L (42.0-52.0) % MCV 90.9 (80-100) fl MCH 30.8 (26-34) pg MCHC 33.8 (32-36) g/dl RDW 12.5 (11.5-14.5) % Plt Count 210 (150-375) k/mm3 MPV 8.7 (7.4-10.4) fl Immature Gran % (Auto) 0.4 (0-0.5) % Neut % (Auto) 69.3 (45.5-73.1) % Lymph % (Auto) 18.3 (18.3-44.2) % [place] % (Auto) 9.4 H (2.6-8.5) % Eos % (Auto) 2.1 (0-4.4) % Baso % (Auto) 0.5 (0.2-1.2) % Lymph # (Auto) 1.55 (0.9-3.2) K/mm3 [place] # (Auto) 0.8 H (0.1-0.6) K/mm3 Eos # (Auto) 0.2 (0-0.3) K/mm3 Baso # (Auto) 0.0 (0.0-0.1) K/mm3 Abs Immat Gran (auto) 0.03 (0.00-0.031) K/mm3 Absolute Neuts (auto) 5.9 (1.3-6.7) K/mm3 Absolute Nucleated RBC 0.000 (0.0-0.012) K/mm3 Nucleated RBC % 0.0 (0.0-0.2) % PT 12.2 (11.1-14.7) Seconds INR 0.9 APTT 23.2 (22.3-36.8) Seconds Sodium 139 (137-145) mmol/L Potassium 4.0 (3.4-5.0) mmol/L Chloride 107 (98-107) mmol/L Carbon Dioxide 22 (22-30) mmol/L Anion Gap 10 (4-12) mmol/L BUN 24 H (9-20) mg/dL Creatinine 0.99 (0.7-1.3) mg/dL Estim Creat Clear Calc 73 ml/min Estimated GFR > 60 (59 - ) Glucose 155 H (65-110) mg/dL Calcium 9.6 (8.4-10.2) mg/dL Total Bilirubin 0.6 (0.2-1.3) mg/dL AST 29 (17-59) U/L ALT 24 (6-50) U/L Alkaline Phosphatase 40 (38-126) U/L Total Creatine Kinase 446 H (55-170) U/L Total Protein 7.2 (6.3-8.2) g/dL Albumin 4.5 (3.5-5.1) g/dL Urine Color Pending Urine Appearance Pending Urine pH Pending Ur Specific [place] Pending Urine Protein Pending Urine Glucose (UA) Pending Urine Ketones Pending Ur Blood (Man) Pending Urine Nitrate Pending Urine Bilirubin Pending Urine Urobilinogen Pending Leukocyte Esterase Rfl Pending Discharge Plan Discharge Patient Language: Cameroonian Prescriptions: No Action finasteride 5 mg tablet 5 mg PO DAILY Qty: 90 2RF tamsulosin 0.4 mg capsule 0.4 mg PO DAILY Qty: 90 2RF meloxicam 15 mg tablet 15 mg PO DAILY Qty: 90 0RF Rx Instructions: with meals (DME) FreeStyle Lite Strips Strip See Rx Instructions .ROUTE .MEDSUPPLY Qty: 100 3RF Rx Instructions: check blood sugar once daily lisinopril 10 mg tablet 10 mg PO DAILY Qty: 90 3RF rosuvastatin 5 mg tablet 5 mg PO DAILY Qty: 90 3RF metformin 500 mg tablet 500 mg PO BID Qty: 180 2RF Mounjaro 10 mg/0.5 mL pen injector 10 mg subcut WEEKLY Qty: 2 3RF Patient Comments: SUNDAYS Follow-up/Referrals: Benjamin Clark DO [Primary Care Provider] -
[2025-02-28 17:58] LABS: Hematocrit 41.1 % (42.0-52.0); Hemoglobin 13.9 g/dL (14.0-18.0); Immature Granulocyte Percent A 0.4 % (0-0.5); Lymphocytes Absolute Auto 1.55 K/mm3 (0.9-3.2); Mean Corpuscular HGB Conc 33.8 g/dl (32-36); Mean Corpuscular Hemoglobin 30.8 pg (26-34); Mean Corpuscular Volume 90.9 fl (80-100); Nucleated Red Blood Cells Absolute Auto 0.000 K/mm3 (0.0-0.012); Nucleated Red Blood Cells Perc 0.0 % (0.0-0.2); Platelet Count Result 210 k/mm3 (150-375); Red Blood Count 4.52 M/mm3 (4.6-6.20); White Blood Count 8.5 K/mm3 (4.5-10.0)
[2025-02-28 18:09] LABS: Alanine Aminotransferase 24 U/L (6-50); Albumin Level 4.5 g/dL (3.5-5.1); Alkaline Phosphatase 40 U/L (38-126); Anion Gap 10 mmol/L (4-12); Aspartate Amino Transferase 29 U/L (17-59); Bilirubin,Total 0.6 mg/dL (0.2-1.3); Blood Urea Nitrogen 24 mg/dL (9-20); Calcium 9.6 mg/dL (8.4-10.2); Carbon Dioxide 22 mmol/L (22-30); Chloride 107 mmol/L (98-107); Creatine Kinase 446 U/L (55-170); Estimated CRCL calculation 73 ml/min; Estimated Glomerular Filt Rate > 60; Glucose 155 mg/dL (65-110); Potassium 4.0 mmol/L (3.4-5.0); Sodium 139 mmol/L (137-145); Total Protein 7.2 g/dL (6.3-8.2)
[2025-02-28 18:09] LABS: INR 0.9; Prothrombin Time 12.2 Seconds (11.1-14.7)
[2025-02-28 18:10] LABS: Partial Thromboplastin Time 23.2 Seconds (22.3-36.8)
[2025-02-28 18:11] LABS: Budding Yeast Urine Present /hpf; Need Manual Microscopic Reviewed
[2025-02-28] MEDS: SODIUM CHLORIDE 0.9% IV 1,000 ML 999 ML IV CONT (18:14)
[2025-02-28 18:17] LABS: Add Urine Microscopic? YES; Appearance Urine Turbid (Clear); Glucose Urine UA Negative (Negative); Leukocyte Esterase Ur 1+ LEU/UL (Negative); Nitrate Urine Negative (Negative); Specific Grav Ur 1.025 (1.001-1.035)
--- NOTE | 2025-02-28 18:21 | ED_ITS ---
HPI - General Adult General Chief complaint: Urogenital-Male Stated complaint: hematuria Time Seen by Provider: 02/28/25 17:27 Source: patient, RN notes reviewed and old records reviewed Mode of arrival: ambulatory Limitations: no limitations History of Present Illness HPI narrative: This is a 65 year old male who presents for evaluation of dark urine. Patient states that yesterday he thought he was drinking gatorade but he thinks it was weed killer. He states that he found full gatorade bottle at work and it tasted light oil so he immediately poured it out. He states he feels fine but he noticed that his urine was tea color today so he came to ER. He denies chest pain, shortness of breath, abdominal pain, nausea, vomiting, dysuria. Related Data Allergies Allergy/AdvReac Type Severity Reaction Status Date / Time No Known Allergies Allergy Verified 02/28/25 16:56 PMFSH Past Medical History Medical History Type 2 diabetes mellitus without complications Skin cyst Sciatica, unspecified side Pure hyperglyceridemia Low back pain Hyperlipidemia, unspecified General medical examination Cough Colon polyp Family History Family History (Updated 10/13/24 @ 15:18 by Nidia Will [facility]) Father Cerebrovascular accident Grandparent Family history of malignant neoplasm Mother Sibling No problems noted. Social History Social History Smoking status: Never smoker Second hand tobacco smoke exposure: Yes Alcohol intake: current Substance use: never Substance use type: does not use Do You Feel Safe in your Home?: Yes Lack of Transportation: No Lack of Food: Never True Current Housing: I Have Housing Concerned About Future Housing: No Difficulty Paying Gas/Electric Bills: No Difficulty Paying for Meds: No Currently Unemployed: No Education: High School Diploma/GED Difficulty w/ Childcare or Family Care: No Living arrangements: with family Occupation/Education: occupation Additional occupation/education comments: [employer] Gender identity (if verbalized by the patient): Male Spiritual care concerns: No Exam 2 Const: General: no acute distress and alert Nutritional Appearance: well nourished Orientation/consciousness: patient oriented x3 Limitations: no limitations HENMT: Head: normal to inspection Eyes: EOM: EOMs intact bilaterally Chest: Chest palpation & inspection: normal inspection of the chest Resp: Effort & Inspection: normal respiratory effort Auscultation: clear to auscultation bilaterally Cardio: Rate: regular rate Rhythm: regular rhythm Heart sounds: no murmurs GI: GI Palp: Yes Soft to palpation, No Tenderness to palpation present (GI), No Guarding due to palpation present (GI) and No Rigid due to palpation A uscultation: normal bowel sounds Back/Spine/Pelvis: Back: no CVA tenderness Skin: General skin exam: normal color Rashes: no rashes Wounds: no wounds Neuro: General: patient oriented x3, moves all extremities and CN's II-XI intact bilaterally Extrem: General: normal to inspection Psych: Mental Status: mental status grossly normal Affect: normal affect Attitude: cooperative Course Reevaluation(s) Reevaluation #1: I Discussed with patient labs and CT. Urine was dark due to microscopic hematuria. CT shows bladder wall thickening and enlarged prostate. HE understands he will be started on antibiotics and he will need to follow up with urologist or PCP Date: 02/28/25 Time: 20:09 Vital Signs Vital signs: Vital Signs Temperature 97.5 F L 02/28/25 16:54 Pulse Rate 72 02/28/25 16:54 Respiratory Rate 18 02/28/25 16:54 Blood Pressure 175/78 H 02/28/25 16:54 Pulse Oximetry 96 02/28/25 16:54 Oxygen Delivery Room Air 02/28/25 16:54 Temperature 97.5 F L 02/28/25 16:54 Pulse Rate 72 02/28/25 16:54 Respiratory Rate 18 02/28/25 16:54 Blood Pressure 175/78 H 02/28/25 16:54 Pulse Oximetry 96 02/28/25 16:54 Oxygen Delivery Room Air 02/28/25 16:54 Medical Decision Making Vital Signs Vital Signs: Vital Signs Temperature 97.5 F L 02/28/25 16:54 Pulse Rate 72 02/28/25 16:54 Respiratory Rate 18 02/28/25 16:54 Blood Pressure 175/78 H 02/28/25 16:54 Pulse Oximetry 96 02/28/25 16:54 Oxygen Delivery Room Air 02/28/25 16:54 Temperature 97.5 F L 02/28/25 16:54 Pulse Rate 72 02/28/25 16:54 Respiratory Rate 18 02/28/25 16:54 Blood Pressure 175/78 H 02/28/25 16:54 Pulse Oximetry 96 02/28/25 16:54 Oxygen Delivery Room Air 02/28/25 16:54 Lab Data Lab results reviewed: Yes I reviewed the patient's lab results. 02/28/25 17:50 02/28/25 17:50 Labs: Lab Results 02/28/25 02/28/25 02/28/25 Range/Units 17:50 17:51 17:52 WBC 8.5 (4.5-10.0) K/mm3 RBC 4.52 L (4.6-6.20) M/mm3 Hgb 13.9 L (14.0-18.0) g/dL Hct 41.1 L (42.0-52.0) % MCV 90.9 (80-100) fl MCH 30.8 (26-34) pg MCHC 33.8 (32-36) g/dl RDW 12.5 (11.5-14.5) % Plt Count 210 (150-375) k/mm3 MPV 8.7 (7.4-10.4) fl Immature Gran % (Auto) 0.4 (0-0.5) % Neut % (Auto) 69.3 (45.5-73.1) % Lymph % (Auto) 18.3 (18.3-44.2) % [place] % (Auto) 9.4 H (2.6-8.5) % Eos % (Auto) 2.1 (0-4.4) % Baso % (Auto) 0.5 (0.2-1.2) % Lymph # (Auto) 1.55 (0.9-3.2) K/mm3 [place] # (Auto) 0.8 H (0.1-0.6) K/mm3 Eos # (Auto) 0.2 (0-0.3) K/mm3 Baso # (Auto) 0.0 (0.0-0.1) K/mm3 Abs Immat Gran (auto) 0.03 (0.00-0.031) K/mm3 Absolute Neuts (auto) 5.9 (1.3-6.7) K/mm3 Absolute Nucleated RBC 0.000 (0.0-0.012) K/mm3 Nucleated RBC % 0.0 (0.0-0.2) % PT 12.2 (11.1-14.7) Seconds INR 0.9 APTT 23.2 (22.3-36.8) Seconds Sodium 139 (137-145) mmol/L Potassium 4.0 (3.4-5.0) mmol/L Chloride 107 (98-107) mmol/L Carbon Dioxide 22 (22-30) mmol/L Anion Gap 10 (4-12) mmol/L BUN 24 H (9-20) mg/dL Creatinine 0.99 (0.7-1.3) mg/dL Estim Creat Clear Calc 73 ml/min Estimated GFR > 60 (59 - ) Glucose 155 H (65-110) mg/dL Calcium 9.6 (8.4-10.2) mg/dL Total Bilirubin 0.6 (0.2-1.3) mg/dL AST 29 (17-59) U/L ALT 24 (6-50) U/L Alkaline Phosphatase 40 (38-126) U/L Total Creatine Kinase 446 H (55-170) U/L Total Protein 7.2 (6.3-8.2) g/dL Albumin 4.5 (3.5-5.1) g/dL Urine Color Dark mark (Yellow) Urine Appearance Turbid H (Clear) Urine pH 5.0 (5.0-9.0) Ur Specific [place] 1.025 (1.001-1.035) Urine Protein 3+ H (Negative) mg/dL Urine Glucose (UA) Negative (Negative) mg/dL Urine Ketones Negative (Negative) mg/dL Ur Blood (Man) 3+ H (Negative) Urine Nitrate Negative (Negative) Urine Bilirubin 1+ H (Negative) Urine Urobilinogen 0.2 (<2.0) mg/dL Add Ur Microanalysis Reviewed Leukocyte Esterase Rfl 1+ H (Negative) STEVIE/UL Urine RBC >100 H (0-2) /hpf Urine WBC 6-10 H (0-3) /hpf Ur Squamous Epith Cells Occasional (Few) /hpf Calcium Oxalate Crystal Present (None) /hpf Urine Bacteria None seen /hpf Urine Casts 3-5 Urine Yeast (Budding) Present H (None) /hpf Imaging Data Radiologist's impression: ITS Impressions Abdomen/Pelvis CT 02/28/25 19:17 IMPRESSION: Mild pericholecystic inflammatory change/fluid, correlate with biliary labs and symptoms of right upper quadrant pain. Urinary bladder wall thickening, may be secondary to cystitis, incomplete distention, or chronic outlet obstruction from prostatomegaly Discharge Plan Discharge Clinical Impression: Hematuria due to cystitis Patient Disposition: Home Condition: Stable Instructions: Antibiotic Form, Hematuria (ED) Additional Instructions: Drink plenty of fluids and take antibiotics until completion. Follow up with urologist or your primary care provider Patient Language: Tamazight Prescriptions: New cephalexin 500 mg capsule 500 mg PO Q8H 10 Days Qty: 30 0RF No Action finasteride 5 mg tablet 5 mg PO DAILY Qty: 90 2RF tamsulosin 0.4 mg capsule 0.4 mg PO DAILY Qty: 90 2RF meloxicam 15 mg tablet 15 mg PO DAILY Qty: 90 0RF Rx Instructions: with meals (DME) FreeStyle Lite Strips Strip See Rx Instructions .ROUTE .MEDSUPPLY Qty: 100 3RF Rx Instructions: check blood sugar once daily lisinopril 10 mg tablet 10 mg PO DAILY Qty: 90 3RF rosuvastatin 5 mg tablet 5 mg PO DAILY Qty: 90 3RF metformin 500 mg tablet 500 mg PO BID Qty: 180 2RF Mounjaro 10 mg/0.5 mL pen injector 10 mg subcut WEEKLY Qty: 2 3RF Patient Comments: SUNDAYS Follow-up/Referrals: Miguel Chin MD [Physician] - Benjamin Clark DO [Primary Care Provider] -
--- OUTSIDE RECORDS SUMMARY | 2025-02-28 18:24 | XMS_ITS | Continuity of Care Document ---
Author Organization [facility] Address [address] [place] [address] [address] [place] [address] Phone Care Team Providers Care Warehouse Logistics Coordinator Name Role Phone Oly Morton Unavailable Unavailable Advance Directives Directive Yes / No Effective Date File Name No Information Encounters Encounter Description Practice Location Reason(s) For Visit Diagnoses Date Provider Providers Copied on Encounter [facility], [id number] [place] [address] [address], [place], [place], [id number], [place] tel:[phone] [facility] No Information Oct-1 5-200 [address] , [address], [place], [address], [place]. tel:[phone] Family History Family Member Type Diagnosis Age At Onset No Information Payers Payer name Insurance type Covered constitution party ID Authoriza tirajani(s) [employer] SOI CI [id number] Social History Type Description Quantity Date Captured [...]
--- OUTSIDE RECORDS SUMMARY | 2025-02-28 18:24 | XMS_ITS | Clinical Summary ---
Author Organization [facility] Address [address] [place] [address] Care Team Providers Care Oracle Database Architect Name Role Phone Ga Barreto Primary Care Provider [phone] Source Comments [facility],non-owned Affiliates and Associated Physician Practices is amultiple site organization consisting of ambulatory clinics and hospital sitesin [place], [place], [place] and [place]. This disclosure is being madepursuant to the Care Everywhere program and may not contain all information available regarding this patient. Last updated 18.[facility] Allergies No known active allergies Immunizations Immunization [...] Insurance ANTHEM ANTHEM BCBS/BLUE BLUE CROSS BLUE [facility] SELF PAY NO INSURANCE Member Subscriber Plan / Payer (Ef fective for All Dates) Name:Oneil Lovelace Member ID:Not on file Relation to Subscriber:Not on file Name:ONEIL LOVELACE Subscriber ID:Not on file (Home) Address: [address] [place] [phone] Payer ID:Not on file Group ID:Not on file Type:Self Pay Address: [facility] Care Teams Oracle Database Architect Relationship Specialty Start Date End Date Ga Barreto DO [address] [facility] [facility] [address] [place] [address] PCP - General 11/19/18
[2025-03-04 15:09] LABS: Myoglobin, Urine <2 ng/mL (0-13)
== END 2025-02-28 20:44 | disposition home or self-care (01) ==
PROVIDERS: Emergency Medicine; Emergency Provider General Practice; PCP Internal Medicine
DX: N30.91 Cystitis, unspecified with hematuria (principal)
CPT/HCPCS: 36415; 74176; 80053; 81001; 82550; 83874; 85025; 85610; 85730; 87086; 96360; 99284; J7030

== ENCOUNTER 2025-04-23 15:34 | Outpatient (CLI) | payer BC, SELFPAY ==
--- NOTE | ~2025-04-23 | CT_ITS ---
EXAMINATION: CT abdomen pelvis wo/w con DATE: 04/23/2025 16:55 INDICATION: Gross hematuria. TECHNIQUE: Computed tomography (CT) of the abdomen and pelvis was performed without and with intravenous contrast using a total of 130 mL Omnipaque-350 intravenous contrast with a double-bolus technique for simultaneous opacification of the renal parenchyma and renal collecting system. Automated exposure control and iterative reconstruction technique were employed. The dose- length product was 1575.60 mGy-cm. COMPARISON: CT abdomen and pelvis 02/28/2025 FINDINGS: The visualized portions of lung bases demonstrate mild atelectasis. No pleural effusion. Cardiomegaly is noted. There are coronary artery calcifications. No pericardial effusion. Calcified right hilar lymph nodes are consistent with old granulomatous disease. The liver, gallbladder, spleen, pancreas, and adrenal glands are normal. There are cysts in the kidneys measuring up to 13 mm on the left. There is no urolithiasis. The ureters are well opacified and are normal. The bladder is normal. The prostate is moderately enlarged. There are no dilated loops of bowel. The appendix is not visualized. There are no pathologically enlarged lymph nodes. There is no free intraperitoneal fluid. There is severe lower lumbar spondylosis. There is mild chronic anterior wedging of multiple thoracic vertebral bodies. There is moderate thoracic spondylosis. There are changes of posterior fusion procedure at L5-S1. IMPRESSION: 1. No etiology for hematuria. Reviewed, dictated and finalized at location E.
--- OUTSIDE RECORDS SUMMARY | 2025-04-23 15:39 | XMS_ITS | Clinical Summary ---
Author Organization [facility] Address [address] [place] [address] Care Team Providers Care Route Deliverer Name Role Phone Ga Barreto Primary Care Provider [phone] Source Comments [facility],non-owned Affiliates and Associated Physician Practices is amultiple site organization consisting of ambulatory clinics and hospital sitesin [place], [place] and [place]. This disclosure is being madepursuant to the Care Everywhere program and may not contain all information available regarding this patient. Last updated 18.[facility] Allergies No known active allergies Immunizations Immunization [...] 2011 ZOSTER VACCINE (1 of 2) 2011 DEPRESSION SCREENING 08/06/2024 COVID-19 VACCINE (1 - 2023-2 5 season) 2025 INFLUENZA VACCINE (#1) 2025 05/20/2019 Respiratory Syncytial [...] age to complete this topic Insurance [facility] Address: [facility] [id number] [place] [address] ANTHEM BCBS/BLUE BLUE CROSS BLUE [facility] SELF PAY NO INSURANCE Member Subscriber Plan / Payer (Ef fective for All Dates) Name:Oneil Lovelace Member ID:Not on file Relation to Subscriber:Not on file Name:ONEIL LOVELACE Subscriber ID:Not on file (Home) Address: [address] [place] [phone] Payer ID:Not on file Group ID:Not on file Type:Self Pay Address: [facility] Care Teams Route Deliverer Relationship Specialty Start Date End Date Ga Barreto DO [address] [facility] [address] [place] [address] PCP - General 11/19/18
[2025-04-23 16:24] LABS: Estimated Glomerular Filt Rate > 60
== END 2025-04-23 15:35 | disposition home or self-care (01) ==
PROVIDERS: PCP Internal Medicine; Visit Provider Nurse Practitioner Family
DX: R31.0 Gross hematuria (principal)
CPT/HCPCS: 74178; Q9967

== ENCOUNTER 2025-06-20 08:27 | Outpatient (CLI) | payer BC, SELFPAY ==
[2025-06-20 08:47] LABS: Hematocrit 41.5 % (42.0-52.0); Hemoglobin 14.2 g/dL (14.0-18.0); Immature Granulocyte Percent A 0.4 % (0-0.5); Lymphocytes Absolute Auto 1.65 K/mm3 (0.9-3.2); Mean Corpuscular HGB Conc 34.2 g/dl (32-36); Mean Corpuscular Hemoglobin 30.9 pg (26-34); Mean Corpuscular Volume 90.2 fl (80-100); Nucleated Red Blood Cells Absolute Auto 0.000 K/mm3 (0.0-0.012); Nucleated Red Blood Cells Perc 0.0 % (0.0-0.2); Platelet Count Result 208 k/mm3 (150-375); Red Blood Count 4.60 M/mm3 (4.6-6.20); White Blood Count 5.7 K/mm3 (4.5-10.0)
[2025-06-20 09:12] LABS: Hemoglobin A1C 6.5 % (<5.7)
[2025-06-20 09:23] LABS: Cholesterol 107 mg/dL (0-200); HDL Direct 47 mg/dL; Triglycerides 86 mg/dL (<150)
[2025-06-20 10:00] LABS: Prostate Specific Antigen 3.5 ng/mL (< OR = 4.0)
== END 2025-06-20 08:28 | disposition home or self-care (01) ==
LOC: ANHLAB 08:28
PROVIDERS: PCP Internal Medicine; Visit Provider Internal Medicine
DX: E78.5 Hyperlipidemia, unspecified (principal); E11.9 Type 2 diabetes mellitus without complications; D64.9 Anemia, unspecified; Z12.5 Encounter for screening for malignant neoplasm of prostate
CPT/HCPCS: 36415; 80061; 83036; 84153; 85025; G0103

== ENCOUNTER 2025-06-21 19:55 | Inpatient (IN) | payer BC, SELFPAY ==
--- OUTSIDE RECORDS SUMMARY | 2000-10-18 03:45 | XMS_ITS | Continuity of Care Document ---
Author Organization [facility] Address [address] [place] [address] [address] [place] [address] Phone Care Team Providers Care Facility Practice Specialist Name Role Phone Oly Morton Unavailable Unavailable Advance Directives Directive Yes / No Effective Date File Name No Information Encounters Encounter Description Practice Location Reason(s) For Visit Diagnoses Date Provider Providers Copied on Encounter [facility], [address] [place] [address] [address], [place], [place], [id number], [place] tel:[phone] [facility] No Information Oct-1 5-200 1 Selene Aldridge. [address] [facility] [address] , [address], [place], [address], [place]. tel:[phone] Family History Family Member Type Diagnosis Age At Onset No Information Payers Payer name Insurance type Covered green party ID Authoriza tirajani(s) [employer] SOI CI [id number] Social History Type Description Quantity Date Captured Comments Sex Male Smoking Status No Information Chief Complaint And Reason For Visit No Information Reason For Referral Reason For Referral No Information History Of Present Illness Encounter Date Complaint History Of Prese nt Illness No Information Functional Status Date Functional Assessmen t No Information Instructions Date Instruction Additional Infor mation No Information Assessments Type Assessment Date No Information Patient Care Teams Name Effective Dates (start - stop) Status Members No Information
--- OUTSIDE RECORDS SUMMARY | 2000-10-18 03:45 | XMS_ITS | Continuity of Care Document ---
Author Organization [facility] Address [address] [place] [address] [address] [place] [address] Phone Care Team Providers Care Public Health Aides Teacher Name Role Phone Oly Morton Unavailable Unavailable Advance Directives Directive Yes / No Effective Date File Name No Information Encounters Encounter Description Practice Location Reason(s) For Visit Diagnoses Date Provider Providers Copied on Encounter [facility], [id number] [place] [address] [address], [place], [place], [id number], [place] tel:[phone] [facility] No Information Oct-1 5-200 1 Selene Aldridge. [address] [facility] [place] , [address], [place], [address], [place]. tel:[phone] Family History Family Member Type Diagnosis Age At Onset No Information Payers Payer name Insurance type Covered republican ID Authoriza tirajani(s) [employer] SOI CI [id number] Social History Type Description Quantity Date Captured [...]
[2025-06-21] VITALS (8 sets, daily range): BP systolic 176–186; BP diastolic 101–107; PULSE 67–73; RESP 15–20; TEMP 36.7; O2SAT 97–99
--- NOTE | ~2025-06-21 | XR_ITS ---
EXAMINATION: XR chest 1V portable DATE: 06/21/2025 20:45 INDICATION: Chest pain TECHNIQUE: A single frontal view of the chest was obtained. COMPARISON: August 16, 2015 FINDINGS: The lungs are marginally inflated with no parminder pulmonary edema or large effusion. No pneumothorax or subphrenic free air seen. Heart size appears normal for technique. IMPRESSION: No focal acute process. Reviewed, dictated and finalized at location A. H MACHINE OPERATOR IMPRESSION: No focal acute process.
--- NOTE | 2025-06-21 19:57 | ECG_ITS ---
Test Date: 2025-06-21 20:01:35 Measurements Intervals Heath Rate: 61 P: 35 NE: 139 QRS: 18 QRSD: 112 T: 0 QT: 377 QTc: 380 Interpretive Statements SINUS RHYTHM INFERIOR MYOCARDIAL INFARCTION , PROBABLY ACUTE ACUTE RI No previous ECG available for comparison Electronically Signed On 06-22-2025 00:13:13 MOSS BLEACHER by Evelio Workman D.O
--- OUTSIDE RECORDS SUMMARY | 2025-06-21 19:57 | XMS_ITS | Clinical Summary ---
Author Organization [facility] Address [address] [place] [address] Care Team Providers Care B2B Outside Sales Representative Name Role Phone Ga Barreto Primary Care Provider [phone] Source Comments [facility],non-owned Affiliates and Associated Physician Practices is amultiple site organization consisting of ambulatory clinics and hospital sitesin [place], [place], [place] and [place]. This disclosure is being madepursuant to the Care Everywhere program and may not contain all information available regarding this patient. Last updated 18.[facility] Allergies No known active allergies Immunizations Immunization [...] DEPRESSION SCREENING 08/06/2024 COVID-19 VACCINE (1 - 2024-2 6 season) 2025 INFLUENZA VACCINE (#1) 2025 05/20/2019 [...] age to complete this topic Insurance [facility] Address: [facility] [id number] [place] [address] ANTHEM BCBS/BLUE BLUE CROSS BLUE [facility] SELF PAY NO INSURANCE Member Subscriber Plan / Payer (Ef fective for All Dates) Name:Oneil Lovelace Member ID:Not on file Relation to Subscriber:Not on file Name:ONEIL LOVELACE Subscriber ID:Not on file (Home) Address: [address] [place] [phone] Payer ID:Not on file Group ID:Not on file Type:Self Pay Address: [facility] Care Teams B2B Outside Sales Representative Relationship Specialty Start Date End Date Ga Barreto DO [address] [facility] [address] [place] [address] PCP - General 11/19/18
--- NOTE | 2025-06-21 20:07 | ED.GENADULT ---
HPI - General Adult General Chief complaint: Chest Pain Stated complaint: CP Time Seen by Provider: 06/21/25 20:07 History of Present Illness HPI narrative: This is a 65-year-old male presenting with chief complaint of chest pain. Chest pain started 1 hour prior to arrival. There is pain at the top of his chest. Nonradiating. Constant. Patient has history of diabetes. Denies history of coronary artery disease. Related Data Allergies Allergy/AdvReac Type Severity Reaction Status Date / Time No Known Allergies Allergy Verified 06/21/25 19:56 [facility] Past Medical History Medical History (Updated 06/21/25 @ 20:35 by Len Morris MD) Type 2 diabetes mellitus without complications Skin cyst Sciatica, unspecified side Pure hyperglyceridemia Low back pain Hyperlipidemia, unspecified General medical examination Cough Colon polyp Family History Family History (Updated 10/13/24 @ 15:18 by Nidia Will [facility]) Father Cerebrovascular accident Grandparent Family history of malignant neoplasm Mother Sibling No problems noted. Social History Social History Smoking status: Never smoker Second hand tobacco smoke exposure: Yes Alcohol intake: current Substance use: never Substance use type: does not use Do You Feel Safe in your Home?: Yes Lack of Transportation: No Lack of Food: Never True Current Housing: I Have Housing Concerned About Future Housing: No Difficulty Paying Gas/Electric Bills: No Difficulty Paying for Meds: No Currently Unemployed: No Education: High School Diploma/GED Difficulty w/ Childcare or Family Care: No Living arrangements: with family Occupation/Education: occupation Additional occupation/education comments: [employer] Gender identity (if verbalized by the patient): Male Spiritual care concerns: No Exam Narrative: APPEARANCE: patient looks uncomfortable Head: atraumatic. EYES: EOMI, NOSE: Atraumatic NECK: Trachea midline RESPIRATORY: No increased rate of breathing clear to auscultation CARDIOVASCULAR: RRR, no peripheral edema ABDOMINAL: Non-distended soft nontender MUSCULOSKELETAl: No obvious deformities NEURO: Alert. Moving 4/4 extremities SKIN:: Warm, dry. Normal color PSYCHIATRIC: Normal affect Medical Decision Making MDM Narrative Medical decision making narrative: -Course: 65-year-old male presenting for chest pain. EKG shows STEMI. Patient given aspirin Brilinta Lipitor and heparin. Interventional Cardiology was contacted and Dr. Workman will take the patient to the lab. Patient is hemodynamically stable this time Discharge Plan Discharge Clinical Impression: ST elevation MA (STEMI) Patient Disposition: Home Condition: Guarded Prognosis
--- NOTE | 2025-06-21 20:11 | PC.NURSE ---
STEMI called at 2001
[2025-06-21] MEDS: ASPIRIN 81 MG CHEWABLE TABLET 324 MG PO (20:15)
[2025-06-21 20:21] LABS: Hematocrit 41.4 % (42.0-52.0); Hemoglobin 14.3 g/dL (14.0-18.0); Immature Granulocyte Percent A 0.6 % (0-0.5); Lymphocytes Absolute Auto 2.00 K/mm3 (0.9-3.2); Mean Corpuscular HGB Conc 34.5 g/dl (32-36); Mean Corpuscular Hemoglobin 31.1 pg (26-34); Mean Corpuscular Volume 90.0 fl (80-100); Nucleated Red Blood Cells Absolute Auto 0.000 K/mm3 (0.0-0.012); Nucleated Red Blood Cells Perc 0.0 % (0.0-0.2); Platelet Count Result 215 k/mm3 (150-375); Red Blood Count 4.60 M/mm3 (4.6-6.20); White Blood Count 8.5 K/mm3 (4.5-10.0)
[2025-06-21] MEDS: HEPARIN SOD/D5W 100 UNITS/ML 25,000 UNITS/250 ML BAG 10 UNITS IV CONT (20:26)
[2025-06-21 20:31] LABS: Alanine Aminotransferase 25 U/L (6-50); Albumin Level 4.7 g/dL (3.5-5.1); Alkaline Phosphatase 44 U/L (38-126); Anion Gap 9 mmol/L (4-12); Aspartate Amino Transferase 27 U/L (17-59); Bilirubin,Total 0.4 mg/dL (0.2-1.3); Blood Urea Nitrogen 27 mg/dL (9-20); Calcium 9.8 mg/dL (8.4-10.2); Carbon Dioxide 26 mmol/L (22-30); Chloride 104 mmol/L (98-107); Estimated CRCL calculation 75 ml/min; Estimated Glomerular Filt Rate > 60; Glucose 225 mg/dL (65-110); Lipase 204 U/L (23-300); Potassium 4.1 mmol/L (3.4-5.0); Sodium 139 mmol/L (137-145); Total Protein 7.5 g/dL (6.3-8.2)
[2025-06-21 20:34] LABS: INR 0.9; Partial Thromboplastin Time 23.2 Seconds (22.3-36.8); Prothrombin Time 11.7 Seconds (11.1-14.7)
[2025-06-21] MEDS: MORPHINE SULFATE (*CRX) 4 MG/ML INJ IV PUSH (20:35)
[2025-06-21] MEDS: TICAGRELOR 90 MG TABLET 180 MG PO (20:37)
[2025-06-21 20:48] LABS: Troponin I 0.105 ng/mL (0.000-0.034)
--- NOTE | 2025-06-21 20:48 | PC.NURSE ---
labor and delivery nurse RNs in room at this time.
--- NOTE | 2025-06-21 20:49 | PC.NURSE ---
This RN called pharmacy for pts Lipitor. Pharmacy states they sent it to clay processing labourer.
--- NOTE | 2025-06-21 20:53 | PC.NURSE ---
pt taken to laboratory apparatus glass blower
--- NOTE | 2025-06-21 20:55 | P.HP_ITS ---
H&P: HPI History of Present Illness Date/Time: 06/21/25 20:55 Chief Complaint: Chest pain that started about 60-90 minutes prior to arrival Narrative: 65-year-old male with hypertension, type 2 diabetes mellitus, BPH. No known prior cardiac history. Patient was brought to [facility] Emergency Room on 06/21/2025 by his with complaints of chest pain. Patient states that he started having substernal chest pain associated with shortness of breath that started about 60- 90 minutes prior to arrival to the emergency room. EKG at presentation on my personal interpretation showed sinus rhythm, ST-elevation in the inferior leads with reciprocal ST depression. Cardiac catheterization lab was activated. Patient received aspirin, loading dose of ticagrelor, heparin bolus, and atorvastatin in the ER. At the time of evaluation in the lab systems analyst, patient had ongoing chest discomfort. He denied any prior cardiac history including clinical PA, angina, heart failure or any known arrhythmias. Patient is a nonsmoker. Review of Systems Review of Systems: General: Negative for fever, chills, fatigue Psychological: Negative for anxiety, depression Ophthalmic: negative for loss of vision ENT: Negative for epistaxis, headaches Allergy and immunology: Negative for hives, nasal congestion Hematologic and lymphatic: Negative for overt bleeding problems Endocrine: Negative for hot flashes, palpitations Respiratory: Negative for cough, hemoptysis Cardiovascular: Positive for chest pain, shortness of breath Gastrointestinal: Negative for abdominal pain, nausea, vomiting, hematochezia Musculoskeletal: Negative for myalgia, joint pains Neurological: Negative for weakness Dermatological: Negative for rash, skin discoloration PMFSH Past Medical History Medical History Type 2 diabetes mellitus without complications Skin cyst Sciatica, unspecified side Pure hyperglyceridemia Low back pain Hyperlipidemia, unspecified General medical examination Cough Colon polyp Family History Family History Father Cerebrovascular accident Grandparent Family history of malignant neoplasm Mother Sibling No problems noted. Social History Social History Smoking status: Never smoker Second hand tobacco smoke exposure: Yes Alcohol intake: current Substance use: never Substance use type: does not use Do You Feel Safe in your Home?: Yes Lack of Transportation: No Lack of Food: Never True Current Housing: I Have Housing Concerned About Future Housing: No Difficulty Paying Gas/Electric Bills: No Difficulty Paying for Meds: No Currently Unemployed: No Education: High School Diploma/GED Difficulty w/ Childcare or Family Care: No Living arrangements: with family Occupation/Education: occupation Additional occupation/education comments: [employer] Gender identity (if verbalized by the patient): Male Spiritual care concerns: No Meds Home Medications and Allergies Home Medications ?Medication ?Instructions ?Recorded ?Confirmed ?Type blood sugar diagnostic (FreeStyle #100 ea 03/19/2306/30 Rx Lite Strips) lisinopril 10 mg tablet 10 mg PO DAILY #90 tabs 06/0706/16/25 Rx rosuvastatin 5 mg tablet 5 mg PO DAILY #90 tabs 06/3006/16/25 Rx metformin 500 mg tablet 500 mg PO BID #180 tabs 09/0706/16/25 Rx finasteride 5 mg tablet 5 mg PO DAILY #90 tabs 10/1306/16/25 Rx tamsulosin 0.4 mg capsule 0.4 mg PO DAILY #90 caps 05/3006/16/25 Rx tirzepatide 10 mg/0.5 mL 10 mg (0.5 mL) subcut WEEKLY #2 mL 05/28/25 06/16/25 Rx subcutaneous pen injector (Gabriela) Allergies Allergy/AdvReac Type Severity Reaction Status Date / Time No Known Allergies Allergy Verified 06/21/25 19:56 Vital Signs Vital Signs - 24 hr 06/21/25 20:04 06/21/25 20:09 06/21/25 20:13 Temperature 36.7 C Pulse Rate 69 67 Respiratory Rate 20 Blood Pressure 186/101 H Pulse Oximetry 97 99 Oxygen Delivery Room Air Room Air Fraction of Inspired Oxygen 06/21/25 20:19 06/21/25 20:44 06/21/25 20:45 Temperature Pulse Rate 70 71 Respiratory Rate 15 15 Blood Pressure Pulse Oximetry 97 99 98 Oxygen Delivery Room Air Fraction of Inspired Oxygen 21 06/21/25 20:46 Temperature Pulse Rate 73 Respiratory Rate 17 Blood Pressure 176/107 H Pulse Oximetry 99 Oxygen Delivery Fraction of Inspired Oxygen Exam Narrative: PHYSICAL EXAMINATION: GENERAL: Alert, oriented, no acute distress MENTAL STATUS: Anxious EYES: Extraocular movements intact, no pallor EARS: External ears appear normal, hearing grossly normal NOSE: Normal and patent, no discharge MOUTH: Mucous membranes moist, tongue normal NECK: Supple, no JVD CHEST: Good respiratory effort, clear to auscultation HEART: Normal rate, regular rhythm, S4 gallop ABDOMEN: Soft, nontender NEUROLOGICAL: Alert, oriented, normal speech, no gross motor deficits MUSCULOSKELETAL: No major deformity, no amputation EXTREMITIES: No pedal edema, no clubbing, no cyanosis SKIN: no rash on the exposed area, no cyanosis PSYCHIATRIC: Anxious H&P: Results Labs Labs: Short CBC 06/21/25 Range/Units 20:11 WBC 8.5 (4.5-10.0) K/mm3 Hgb 14.3 (14.0-18.0) g/dL Hct 41.4 L (42.0-52.0) % Plt Count 215 (150-375) k/mm3 BMP 06/21/25 20:11 Sodium 139 Potassium 4.1 Chloride 104 Carbon Dioxide 26 BUN 27 H Creatinine 0.96 Glucose 225 H Calcium 9.8 Cardiac Enzymes 06/21/25 Range/Units 20:11 Troponin I 0.105 H* (0.000-0.034) ng/mL Liver Function 06/21/25 Range/Units 20:11 Total Bilirubin 0.4 (0.2-1.3) mg/dL AST 27 (17-59) U/L ALT 25 (6-50) U/L Alkaline Phosphatase 44 (38-126) U/L Albumin 4.7 (3.5-5.1) g/dL Assessment and Plan Assessment and plan (1) Inferior ST segment elevation: Code(s): R94.31 - Abnormal electrocardiogram [ECG] [EKG] Status: Acute Assessment and Plan: 65-year-old male with type 2 diabetes mellitus, BPH, no known prior cardiac history. Patient presented to [facility] Emergency Room with chest pain that started about 60-90 minutes prior to arrival. EKG at presentation showed sinus rhythm, inferior ST elevation with reciprocal ST depression. Details of the emergent cardiac catheterization and intervention are dictated separately in the cardiac catheterization/intervention report. Coronary angiogram showed totally occluded mid RCA which appeared to be underlying functional chronic total occlusion with superimposed thrombotic occlusion resulting in the inferior ST-elevation PA. In addition, patient was found to have 40-50% stenosis distal left main stenosis with MLA 7 mm2 on IVUS; diffuse about 70% stenosis proximal-mid LAD; high-grade stenosis mid LCX just distal to the origin of the OM1 branch. LVEF 35-40% with inferior wall akinesis; LVEDP severely elevated at 34 mmHg. Patient underwent attempted PCI on totally occluded RCA which was extremely tortuous. Despite multiple attempts and multiple guidewires, the stenosis could not be crossed fully. In light of multivessel CAD and LV dysfunction with severely elevated LVEDP, we proceeded with mechanical circulatory support with Impella CP. I spoke with ICU team at [facility] and also with Dr. Killian (CT surgeon on-call). Patient will undergo surgical revascularization at [facility]. Standard medical treatment for ACS including unfractionated heparin. Further management at [facility]. Patient and his family updated. Prognosis guarded. (2) Diabetes mellitus: Code(s): E11.9 - Type 2 diabetes mellitus without complications Status: Acute
[2025-06-21 21:43] LABS: MRSA (PCR) NOT DETECTED (NOT DETECTE)
--- NOTE | 2025-06-21 23:32 | WPDCARDPROC ---
Cardiac Cath Procedure Note Date of procedure:: 06/21/25 Performing physician:: Evelio Workman MD Procedure Procedure note:: EMERGENT CARDIAC CATHETERIZATION AND PERCUTANEOUS CORONARY INTERVENTION REPORT DATE OF PROCEDURE: ACS/inferior ST-elevation PR INDICATION FOR PROCEDURE: BRIEF CLINICAL HISTORY: 65-year-old male with hypertension, type 2 diabetes mellitus, BPH. No known prior cardiac history. Patient was brought to [facility] Emergency Room on 06/21/2025 by his with complaints of chest pain. Patient states that he started having substernal chest pain associated with shortness of breath that started about 60-90 minutes prior to arrival to the emergency room. EKG at presentation showed sinus rhythm, ST-elevation in the inferior leads with reciprocal ST depression. Cardiac catheterization lab was activated. Patient received aspirin, loading dose of ticagrelor, heparin bolus, and atorvastatin in the ER. At the time of evaluation in the labels molder, patient had ongoing chest discomfort. He denied any prior cardiac history including clinical PR, angina, heart failure or any known arrhythmias. Patient is a nonsmoker. PROCEDURES PERFORMED: 1. Emergent Left heart catheterization- Selective left and right coronary angiogram; left ventriculogram and hemodynamic assessment 2. Percutaneous coronary intervention- a) attempted intervention on totally occluded, tortuous right coronary artery; b) intravascular ultrasound (IVUS) of left main coronary; c) insertion and placement of percutaneous left ventricular assist device (Impella CP) for hemodynamic support in the setting of multivessel CAD and LV systolic dysfunction with severely elevated LVEDP (CPT 27890) 4. Distal abdominal aortogram with bilateral iliac runoff 5. Ultrasound-guided right radial and right common femoral artery access 6. Moderate sedation-CPT code 92029 and beyond MODERATE SEDATION: Midazolam 3 mg; fentanyl 75 mcg. Start time 2109 , Stop time 2312 ; Total obip-ba-cqcs time 123 minutes; Demetri Moeller RN was trained observer for moderate sedation. ACCESS SITE: Right radial artery and common femoral artery PROCEDURE NOTE: Patient was emergently brought to catheterization lab and prepped and draped in a usual sterile manner. After local anesthesia with lidocaine, right radial artery access was taken with micropuncture needle under ultrasound guidance followed by insertion of a 6 Scottish sheath. Selective right coronary angiogram was performed using 6 Scottish JR4 guide catheter. As discussed below, insert part of the procedure including attempted PCI was performed through the radial access. Remainder of the procedure was performed through the right common femoral artery access due to spasm in the right radial artery and need for mechanical circulatory support. Selective left coronary angiogram was performed using 5 Scottish JL4 diagnostic catheter. Orthogonal views were taken. Next, a 5 Scottish pigtail catheter was advanced in the LV cavity and was flushed with normal saline. LV pressure measurement was performed. After this, left ventriculogram was performed. The catheter was flushed again, and gradient across the aortic valve was measured on the pullback of the catheter. After completion of procedure, radial band was applied for right radial artery access site. Patient tolerated procedure well without any immediate procedure related complications. FINDINGS: LEFT MAIN CORONARY: Medium caliber, long vessel, about 40-50% stenosis seen in the mid-distal segment. LEFT ANTERIOR DESCENDING ARTERY: Medium caliber vessel. There is diffuse about 70% stenosis in the proximal-mid segment. The vessel tapers distally and reaches the LV apex. D1 is a small to medium caliber vessel with about 90% stenosis in the ostium. D2 is a small to medium caliber vessel without significant focal stenosis. LEFT CIRCUMFLEX ARTERY: Medium caliber vessel. Gives rise to OM 1 branch which is medium caliber vessel with his medical stenosis. There is 70-80% stenosis in the mid LCX just distal to the origin of the OM1 branch. OM2 branch is a medium caliber vessel with diffuse 50% stenosis in the proximal segment. RIGHT CORONARY ARTERY: RCA is a medium caliber very tortuous vessel in the proximal segment. There is 100% occlusion in the mid segment which is likely functional chronic total occlusion with superimposed thrombotic occlusion resulting in the inferior ST-elevation PR. very faint collaterals were seen on left coronary angiogram. LEFT VENTRICULOGRAM: LV systolic dysfunction with segmental wall motion abnormality; inferior segment is akinetic. Ejection fraction approximately 40%. LVEDP elevated at 34 mmHg. HEMODYNAMIC ASSESSMENT: Opening pressure 136/66 mmHg, closing pressure 146/78 mmHg, LVEDP 34 mmHg; no significant gradient across aortic valve on the pullback of pigtail catheter. INTERVENTION REPORT: Initially, PCI was attempted through the right radial artery access. The RCA was selectively engaged using 3DRC guide catheter. Patient had already received aspirin loading dose of ticagrelor in the ER. Bivalirudin was used for procedural anticoagulation. Despite numerous attempts and using available wires in the labels molder including [employer] 150, whisper wire with the supporting balloon, the stenosis could not be crossed. The guide was changed to AL1 guide catheter provide better guide support, however, again the stenosis could not be crossed. A 6 Scottish GuideLiner was used without success. After this, access was taken in the right common femoral artery under ultrasound guidance followed by insertion of a 6 Scottish sheath. Selective left coronary angiogram was performed using 5 Scottish JL4 diagnostic catheter. Left ventriculogram was performed as described above using pigtail catheter. Left main was engaged using EBU guide catheter and 0.014 luge wire was advanced in the left main and LAD. IVUS was performed using was [employer] [place] catheter on manual pullback which showed diffuse calcific disease in the ostial-proximal LAD and also in the mid-distal left main with minimal luminal area of 7 mm2 in the distal left main. After IVUS of left main, additional attempt was made on RCA intervention. RCA was engaged using 6 Scottish AL1 guide catheter. Again, multiple wires were used with support and balloon catheters, however, the stenosis could not be crossed. In light of patient's multivessel CAD and LV systolic dysfunction with significantly elevated LVEDP, we proceeded with insertion of placement of Impella CP for mechanical support. Prior to that, distal abdominal aortogram was performed with bilateral iliac runoff to rule out any significant iliofemoral disease. After this, after serial dilations, Impella peel-away sheath was inserted followed by Impella catheter under fluoroscopic guidance. Augmentation was initiated at about 3.4 liters/minute. The peel-away sheath was taken out and Impella sheath was inserted which was secured in place with sutures. Radial band was applied for local hemostasis at the right radial artery access site. Patient's chest pain improved after Impella placement. I spoke with [facility] transfer line, ICU team at [facility] and also with the CT surgeon on-call. Patient will be transferred to [facility] for surgical revascularization. Patient and his family were updated as well. CONCLUSIONS: 1. Multivessel CAD- a) totally occluded, tortuous mid RCA-likely functional chronic total occlusion with superimposed thrombotic occlusion-infarct related vessel; b) 40-50% stenosis distal left main (MLA 7 mm2 on IVUS); c) diffuse about 70% stenosis proximal-mid LAD; about 90% stenosis at the ostium of small to medium caliber D1; d) 70-80% stenosis mid LCX just distal to the origin of OM1 branch; about 50% diffuse stenosis proximal segment of OM2 branch 2. LV systolic dysfunction with segmental wall motion abnormality, akinetic inferior segment; LVEF about 40%, LVEDP elevated at 34 mmHg. 3. Attempted PCI of totally occluded, very tortuous mid RCA (likely functional chronic total occlusion with superimposed thrombotic occlusion) 4. Insertion and placement of percutaneous left ventricular assist device-Impella CP a patient with multivessel CAD, LV dysfunction and elevated LVEDP. PLAN/RECOMMENDATIONS: Patient has multivessel CAD as described above and LV systolic dysfunction. He is being transferred to [facility] for surgical revascularization. I spoke with CT surgery on-call and ICU team at [facility]. Patient will be maintained on mechanical circulatory support with Impella CP with close monitoring of hemodynamics and any vascular complications. Standard treatment for ACS. Patient has been initiated on unfractionated heparin. He will have echo with Doppler to rule out any significant valvular disease prior to surgical revascularization. Further cardiovascular management at [facility]. Patient and his family updated. Prognosis guarded. This document was completed by using [employer] speech recognition software, therefore, sales and marketing manager variances may occur.
--- NOTE | 2025-06-21 23:56 | PM.TDS ---
Transfer Discharge Sum: Prov Provider Date of admission: 06/21/2025 Primary care physician: Benjamin Clark DO Admitting clinician: Evelio Workman Attending physician on admission: Evelio Workman Attending physician on discharge: Evelio Workman Discharging clinician: Evelio Workman Anticipated date of transfer: 06/21/25 Receiving physician/facility: [facility] DS: Admitting Diagnosis Discharge Date 06/22/2025 Admitting Diagnosis ACS-inferior ST-elevation CO DS: Discharge Diagnosis Discharge Diagnosis (1) ST elevation CO (STEMI): Code(s): I21.3 - ST elevation (STEMI) myocardial infarction of unspecified site Status: Acute Assessment and Plan: Coronary angiogram showed total occluded RCA; and CAD involving left main, LAD and LCX. Impella CP was placed for hemodynamic support. Patient transfer to [facility] for surgical revascularization. I spoke with [facility] transfer line, ICU team at [facility] and also with the CT surgeon on-call at [facility]. Plan Patient is being transferred to [facility] for surgical revascularization. Impella CP was placed for hemodynamic support. Transfer Discharge Sum: Med Medications Active and Home Medications: Home Medications blood sugar diagnostic (FreeStyle Lite Strips) #100 ea 03/19/23 [Rx Confirmed 06/16/25] lisinopril 10 mg tablet 10 mg PO DAILY #90 tabs 06/30/24 [Rx Confirmed 06/16/25] rosuvastatin 5 mg tablet 5 mg PO DAILY #90 tabs 06/30/24 [Rx Confirmed 06/16/25] metformin 500 mg tablet 500 mg PO BID #180 tabs 09/25/24 [Rx Confirmed 06/16/25] finasteride 5 mg tablet 5 mg PO DAILY #90 tabs 10/13/24 [Rx Confirmed 06/16/25] tamsulosin 0.4 mg capsule 0.4 mg PO DAILY #90 caps 10/13/24 [Rx Confirmed 06/16/25] tirzepatide 10 mg/0.5 mL subcutaneous pen injector (Mounjaro) 10 mg (0.5 mL) subcut WEEKLY #2 mL 05/28/25 [Rx Confirmed 06/16/25] Active Medications Heparin Sodium (Porcine) (Heparin Sodium 5,000 Units/Ml Vial) 4,000 units IV PUSH PRN PRN PRN Reason: aPTT less than 55 seconds Heparin Sodium (Porcine) (Heparin Sodium 5,000 Units/Ml Vial) 3,500 units IV PUSH PRN PRN PRN Reason: aPTT 55 - 70 seconds Heparin Sodium/Dextrose (Heparin Sodium/D5w 100 Units/Ml) 25,000 units in 250 mls @ 10 mls/hr IV CONT .Q24H [facility]; Protocol Last Admin: 06/21/25 20:26 Dose: 1,000 units/hr, 10 mls/hr Transfer Discharge Sum: Hosp Hospital Course Hospital course: Darrel Olsen is a 65 year old male Patient Condition: Gaurded Prognosis Time Spent with Patient Time attestation: Total time spent providing and/or coordinating transfer services: Total time spent: Greater than 30 minutes Exam Narrative: PHYSICAL EXAMINATION: GENERAL: Alert, oriented, no acute distress MENTAL STATUS: affect appropriate to mood EYES: Extraocular movements intact, no pallor EARS: External ears appear normal, hearing grossly normal NOSE: Normal and patent, no discharge MOUTH: Mucous membranes moist, tongue normal NECK: Supple, no JVD CHEST: Good respiratory effort, clear to auscultation HEART: Normal rate, regular rhythm, S4 gallop ABDOMEN: Soft, nontender NEUROLOGICAL: Alert, oriented, normal speech, no gross motor deficits MUSCULOSKELETAL: No major deformity, no amputation EXTREMITIES: No pedal edema, no clubbing, no cyanosis SKIN: no rash on the exposed area, no cyanosis PSYCHIATRIC: Normal mood, appropriate affect DS: Data Data Completed and Pending Labs on day of discharge: Labs from last 24 hours 06/21/25 06/21/25 20:12 20:11 WBC 8.5 RBC 4.60 Hgb 14.3 Hct 41.4 L MCV 90.0 MCH 31.1 MCHC 34.5 RDW 12.1 Plt Count 215 MPV 8.8 Immature Gran % (Auto) 0.6 H Neut % (Auto) 64.4 Lymph % (Auto) 23.5 [place] % (Auto) 8.6 H Eos % (Auto) 2.4 Baso % (Auto) 0.5 Lymph # (Auto) 2.00 [place] # (Auto) 0.7 H Eos # (Auto) 0.2 Baso # (Auto) 0.0 Abs Immat Gran (auto) 0.05 H Absolute Neuts (auto) 5.5 Absolute Nucleated RBC 0.000 Nucleated RBC % 0.0 PT 11.7 INR 0.9 APTT 23.2 Sodium 139 Potassium 4.1 Chloride 104 Carbon Dioxide 26 Anion Gap 9 BUN 27 H Creatinine 0.96 Estim Creat Clear Calc 75 Estimated GFR > 60 Glucose 225 H Calcium 9.8 Total Bilirubin 0.4 AST 27 ALT 25 Alkaline Phosphatase 44 Troponin I 0.105 H* Total Protein 7.5 Albumin 4.7 Lipase 204 Nasal MRSA (PCR) Not detected
== END 2025-06-22 00:20 | disposition short-term general hospital (02) | DRG 215 ==
LOC: ANHED 20:16 → ANHCATHLAB 20:35 → ANHED 06-23 16:06 → ANHICU 06-24 10:28
PROVIDERS: Admitting Provider Internal Medicine Cardiovascular Disease; Emergency Provider Emergency Medicine; PCP Internal Medicine; Visit Provider Internal Medicine Cardiovascular Disease
PROC: 4A023N7 Measurement of Cardiac Sampling and Pressure, Left Heart, Percutaneous Approach (ICD-10-PCS; CPT 93452; principal; 2025-06-21 20:30)
PROC: (CPT 36140; 2025-06-21 20:30)
PROC: 02703ZZ Dilation of Coronary Artery, One Artery, Percutaneous Approach (ICD-10-PCS; CPT 92920; 2025-06-21 20:30)
PROC: (CPT 33979; 2025-06-21 20:30)
DX: I21.19 ST elevation (STEMI) myocardial infarction involving other coronary artery of inferior wall (principal); I25.10 Atherosclerotic heart disease of native coronary artery without angina pectoris; I10 Essential (primary) hypertension; E11.9 Type 2 diabetes mellitus without complications; E78.1 Pure hyperglyceridemia; E78.5 Hyperlipidemia, unspecified; M54.40 Lumbago with sciatica, unspecified side; N40.0 Benign prostatic hyperplasia without lower urinary tract symptoms
CPT/HCPCS: 33990; 36140; 36415; 71045; 80053; 83690; 84484; 85025; 85610; 85730; 87641; 92920; 92978; 93005; 93458; 96374; 96375; 99285; A9270; C1725; C1753; C1769; C1887; C1894; J0583; J1644; J2003; J2250; J2270; J2305; J3010; J7030; J7040; J7060